=== PATIENT | male | born 1965 | race Caucasian/White ===

== ENCOUNTER 2016-12-14 00:44 | Observation (INO) | payer OTHER ==
[2016-12-14 01:02] VITALS: BMI 29.8
--- NOTE | 2016-12-14 01:39 | PDOC ---
History of Present Illness - General Chief Complaint: Blood Pressure Problem Stated Complaint: HIGH BLOOD PRESSURE Time Seen by Provider: 12/14/16 01:04 - History of Present Illness Initial Comments: 12/14/16 01:39 CHIEF COMPLAINT: blood pressure HISTORY OF PRESENT ILLNESS: 51 yo M with hx of uncontrolled HTN and HLD (taking chlorthalidone, simvistatin, verapamil) was BIBEMS for elevated blood pressure. Per patient, he takes his blood pressure 3x daily due to significant history of "random episodes of spiked blood pressure"; tonight his blood pressure was in the 180s/110s, and he called EMS. Per EMS patient had BP of 200s/110s. On arrival to ED patient's BP was 160/106. Patient states he had "a little blurry vision" at the time he took his blood pressure at home, but denies any symptoms now. He denies any chest pain, shortness of breath, palpitations, diaphoresis. He reports that he has had exactly same episodes "since I was 19" and has seen multiple specialists without any resolution of the problem. He states that he has had a negative holter monitor test, stress test, and multiple other tests that have all been inconclusive. 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 PAST MEDICAL HISTORY: as per HPI FAMILY HISTORY: "All of my family has this same problem, some of them from end organ failure due to heart problems." SOCIAL HISTORY: Denies tobacco, alcohol, illicit drug use. SURGICAL HISTORY: Denies ALLERGIES: No known drug allergies REVIEW OF SYSTEMS General/Constitutional: Denies fever or chills. Denies weakness, weight change. HEENT: "Blurry vision earlier." Denies ear pain or discharge. Denies sore throat. Cardiovascular: Denies chest pain or shortness of breath. Respiratory: Denies cough, wheezing, or hemoptysis. Gastrointestinal: Denies nausea, vomiting, diarrhea or constipation. Denies rectal bleeding. Genitourinary: Denies dysuria, frequency, or change in urination. Musculoskeletal: Denies joint or muscle swelling or pain. Denies neck or back pain. Skin and breasts: Denies rash or easy bruising. Neurologic: Denies headache, vertigo, loss of consciousness, or loss of sensation. PHYSICAL EXAM General Appearance: Well-appearing, appropriately dressed. No apparent distress. HEENT: EOMI, PERRLA, normal ENT inspection, normal voice, TMs normal, pharynx normal. No conjunctival pallor. No photophobia, scleral icterus. Neck: Supple. Trachea midline. No tenderness, rigidity, carotid bruit, stridor , lymphadenopathy, or thyromegaly. Respiratory/Chest: Lungs CTAB. No shortness of breath, chest tenderness, respiratory distress, accessory muscle use. No crackles, rales, rhonchi, stridor , wheezing, dullness Cardiovascular: RRR. S1, S2. No JVD, murmur, bradycardia, tachycardia. Vascular Pulses: Dorsalis-Pedis (R): 2+, Dorsalis-Pedis (L): 2+ Gastrointestinal/Abdominal: Normal bowel sounds. Abdomen soft, non-distended. No tenderness or rebound tenderness. No organomegaly, pulsatile mass, guarding , hernia, hepatomegaly, splenomegaly. Lymphatic: No adenopathy, tenderness. Musculoskeletal/Extremities: Normal inspection. FROM of all extremities, normal capillary refill. Pelvis Stable. No CVA tenderness. No tenderness to extremities, pedal edema, swelling, erythema or deformity. Integumentary: Appropriate color, dry, warm. 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 Fully oriented, alert. Appropriate mood/affect. Motor strength 5/5. No appreciable EOM palsy, facial droop or sensory deficit. Past History - Past Medical History Allergies/Adverse Reactions: Allergies Allergy/AdvReac Type Severity Reaction Status Date / Time No Known Allergies Allergy Verified 12/14/16 00:58 Home Medications: Ambulatory Orders Pantoprazole Sodium 40 mg PO DAILY 12/14/16 Verapamil HCl [Verapamil ER] 120 mg PO DAILY 12/14/16 Aspirin [ASA -] 81 mg PO DAILY tab.chew 12/15/16 Atorvastatin Ca [Lipitor] 20 mg PO HS #60 tablet 12/15/16 Fluticasone Prop 0.05% Nasal [Flonase -] 1 spray NS BID spray 12/15/16 Valsartan [Diovan] 80 mg PO DAILY #60 tablet 12/15/16 Verapamil HCl 120 mg PO DAILY tablet 12/15/16 - Suicide/Smoking/Psychosocial Hx Smoking History: Never smoked Have you smoked in the past 12 months: No Information on smoking cessation initiated: No Hx Alcohol Use: No Drug/Substance Use Hx: No *Physical Exam - Vital Signs Last Vital Signs Temp Pulse Resp BP Pulse Ox 98.4 F 62 16 140/83 97 12/15/16 18:00 12/15/16 18:00 12/15/16 18:00 12/15/16 18:00 12/15/16 07:43 Heart Score/ECG Review - History History: Slightly suspicious - Electrocardiogram EKG: Normal - Age Age: 45-65 - Risk Factors Risk Factors Heart Score: Yes Hx Hypercholesterolemia, Yes Hx Hypertension, Yes Positive family hx of cardiac disease Based on the list above the patient has:: >/=3 risk factors or Hx atherosclerotic disease - Troponin Troponin: </= normal limit - Score Heart Score - Total: 3 ED Treatment Course - LABORATORY CBC & Chemistry Diagram: 12/14/16 01:48 12/15/16 15:10 - ADDITIONAL ORDERS Additional order review: 12/14/16 01:48 RBC 5.37 MCV 84.1 MCHC 32.4 RDW 13.9 MPV 10.0 Neutrophils % 58.8 Lymphocytes % 24.0 Monocytes % 9.8 Eosinophils % 6.1 H Basophils % 1.3 - Medications Given in the ED: ED Medications Discontinued Medications Generic Name Dose Route Start Last Admin Trade Name Freq PRN Reason Stop Dose Admin Amlodipine Besylate 5 mg 12/14/16 01:48 12/14/16 02:11 Norvasc - PO 12/14/16 01:49 5 mg ONCE ONE Administration Amlodipine Besylate 5 mg 12/15/16 10:00 12/15/16 09:41 Norvasc - PO 5 mg DAILY SRINI Administration Aspirin 162 mg 12/14/16 07:15 12/14/16 09:50 Asa - PO 12/14/16 07:16 162 mg ONCE ONE Administration Aspirin 81 mg 12/15/16 10:00 12/15/16 09:41 Asa - PO 81 mg DAILY SRINI Administration Atorvastatin Calcium 10 mg 12/14/16 22:00 12/14/16 22:57 Lipitor - PO 10 mg HS SRINI Administration Chlorthalidone 25 mg 12/14/16 14:30 12/14/16 15:45 Hygroton - PO 25 mg DAILY SRINI Administration Fluticasone Propionate 1 spray 12/14/16 22:00 12/15/16 09:43 Flonase - NS 1 spray BID SRINI Administration Pantoprazole Sodium 40 mg 12/14/16 14:30 12/15/16 09:41 Protonix - PO 40 mg DAILY SRINI Administration Potassium Chloride 20 meq 12/14/16 03:22 12/14/16 04:19 K-Dur - PO 12/14/16 03:23 20 meq ONCE ONE Administration Potassium Chloride 20 meq 12/14/16 15:27 12/14/16 15:45 K-Dur - PO 12/14/16 15:28 20 meq ONCE ONE Administration Potassium Chloride 20 meq 12/15/16 16:31 12/15/16 17:38 K-Dur - PO 12/15/16 16:32 20 meq ONCE ONE Administration Valsartan 80 mg 12/15/16 14:00 12/15/16 14:55 Diovan - PO 12/15/16 14:01 80 mg ONCE ONE Administration Verapamil HCl 120 mg 12/14/16 14:30 12/15/16 11:02 Verapamil Hcl PO 120 mg DAILY SRINI Administration Medical Decision Making - Medical Decision Making 12/14/16 03:53 51 yo M with hx of uncontrolled HTN and HLD (taking chlorthalidone, simvistatin , verapamil) was BIBEMS for elevated blood pressure. -EKG -CBC, CMP, card profile, Mg EKG normal. CKMB elevated to 6+ with CK in 700s. Trop negative. Patient reports that "it' s usually like this, the CK is elevated." He reports that he has tried multiple different exercise regimens as well as different diets to try to find out what is causing this. Discussed case with ER attending Jonas. Heart score 3, will admit to obs for GABO given elevated CKMB. *DC/Admit/Observation/Transfer Diagnosis at time of Disposition: Ruled out for myocardial infarction, Hypertensive urgency - Discharge Dispostion Disposition: HOME Condition at time of disposition: Improved Admit: Yes - Prescriptions
[2016-12-14] MEDS ORDERED: amLODIPine BESYLATE 5 MG TABLET (FP) PO ONE (01:48)
[2016-12-14 01:55] LABS: BASOPHIL 1.3 % (0-2.0); EOSINOPHIL 6.1 % (0-4.5); MCH 27.2 pg (25.7-33.7); MCHC 32.4 g/dl (32.0-35.9); MEAN CELL VOLUME 84.1 fl (80-96); NEUTROPHILS 58.8 % (42.8-82.8); PLATELET COUNT 218 K/MM3 (134-434); RDW 13.9 % (11.9-15.9); WHITE BLOOD COUNT 9.1 K/mm3 (4.0-10.0)
[2016-12-14] MEDS ORDERED: amLODIPine BESYLATE 5 MG TABLET (FP) ONE (02:09)
[2016-12-14 02:13] LABS: INR 1.02 (0.82-1.09); PROTHROMBIN TIME (PATIENT) 11.5 SEC (9.98-11.88)
[2016-12-14 02:23] LABS: MAGNESIUM 2.1 mg/dL (1.8-2.4)
[2016-12-14 02:24] LABS: ALBUMIN 3.7 g/dl (3.4-5.0); ANION GAP 10 (8-16); BILIRUBIN,TOTAL 0.8 mg/dL (0.2-1.0); CALCIUM 9.4 mg/dL (8.5-10.1); CO2 28 mmol/L (21-32); CREATININE 0.8 mg/dL (0.7-1.3); GLUCOSE,RANDOM 111 mg/dL (74-106); SGOT/AST 34 U/L (15-37); SGPT/ALT 48 U/L (12-78); TOT PROT 7.2 g/dl (6.4-8.2)
[2016-12-14 02:26] LABS: ALK PHOS 54 U/L (45-117); CPK 791 IU/L (39-308); TROPONIN I < 0.02 ng/ml (0.00-0.05)
[2016-12-14] MEDS ORDERED: POTASSIUM CHLORIDE TABS 20 MEQ TABLET.ER (FP) PO ONE ×3 (03:22→15:27)
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
[2016-12-14] MEDS ORDERED: ASPIRIN 81 MG CHEWABLE TABLETS PO ONE (07:15)
[2016-12-14] MEDS ORDERED: ASPIRIN 81 MG CHEWABLE TABLETS ONE (09:47)
[2016-12-14 10:25] LABS: ANION GAP 6 (8-16); BILIRUBIN,TOTAL 1.1 mg/dL (0.2-1.0); CALCIUM 9.4 mg/dL (8.5-10.1); CHOLESTEROL 179 mg/dL (50-200); CO2 34 mmol/L (21-32); CREATININE 0.9 mg/dL (0.7-1.3); GLUCOSE,RANDOM 97 mg/dL (74-106); PHOSPHOROUS 2.9 mg/dL (2.5-4.9); SGOT/AST 33 U/L (15-37); SGPT/ALT 50 U/L (12-78); TOT PROT 7.6 g/dl (6.4-8.2)
[2016-12-14 10:26] LABS: CPK 700 IU/L (39-308); TROPONIN I < 0.02 ng/ml (0.00-0.05); URINE MARIJUANA THC NEGATIVE ng/ml (CUTOFF=50)
[2016-12-14 10:34] LABS: ALK PHOS 56 U/L (45-117); THYROID STIMULATING HORMONE 2.61 uIU/ml (0.358-3.74)
--- NOTE | 2016-12-14 11:01 | EKG ---
Test Reason : Blood Pressure : / mmHG Vent. Rate : 069 BPM Atrial Rate : 069 BPM P-R Int : 178 ms QRS Dur : 096 ms QT Int : 406 ms P-R-T Axes : 072 049 044 degrees QTc Int : 435 ms NORMAL SINUS RHYTHM LEFT ATRIAL ENLARGEMENT ABNORMAL ECG NO PREVIOUS ECGS AVAILABLE Confirmed by XOCHILT PRESCOTT MD ([id number]) on 12/14/2016 11:01:40 AM Referred By: Confirmed By:XOCHILT PRESCOTT MD
[2016-12-14] MEDS ORDERED: CHLORTHALIDONE 25 MG TABLET PO SCH (14:30)
[2016-12-14] MEDS: PANTOPRAZOLE 40 MG TABLET (FP) PO SCH (15:45)
[2016-12-14] MEDS: VERAPAMIL HCL 120 MG TABLET PO SCH (15:45)
--- NOTE | 2016-12-14 20:09 | CON.CARD ---
Consult Consult Specialty:: Cardiology Referred by:: Hospitalist Reason for Consultation:: Cardiac evaluation - History of Present Illness Chief Complaint: Hypertension History of Present Illness: Patient is a 51 year old male with underlying history of hypertension which has been labile and hypercholesterolemia who presents with left sided chest discomfort and elevated blood pressure up to 180/110 mmHg. When EMS arrived at this house, he was found to have blood pressure of 200/110 mmHg. He was brought in for further management. He denies shortness of breath or palpitations. He denies paroxysmal nocturnal dyspnea or orthopnea. He denies fever or chills. He denies headache or lightheadedness. He denies cough or expectorations. He denies nausea, vomiting, diarrhea or abdominal pain. Cardiology consultation was called for further evaluation. - History Source History Provided By: Patient Limitations to Obtaining History: No Limitations - Past Medical History Cardio/Vascular: Yes: HTN, Hyperlipdemia - Alcohol/Substance Use Hx Alcohol Use: No - Smoking History Smoking history: Never smoked Have you smoked in the past 12 months: No Home Medications - Allergies Allergies/Adverse Reactions: Allergies Allergy/AdvReac Type Severity Reaction Status Date / Time No Known Allergies Allergy Verified 12/14/16 00:58 - Home Medications Home Medications: Ambulatory Orders Pantoprazole Sodium 40 mg PO DAILY 12/14/16 Verapamil HCl [Verapamil ER] 120 mg PO DAILY 12/14/16 Aspirin [ASA -] 81 mg PO DAILY tab.chew 12/15/16 Atorvastatin Ca [Lipitor] 20 mg PO HS #60 tablet 12/15/16 Fluticasone Prop 0.05% Nasal [Flonase -] 1 spray NS BID spray 12/15/16 Valsartan [Diovan] 80 mg PO DAILY #60 tablet 12/15/16 Verapamil HCl 120 mg PO DAILY tablet 12/15/16 Family Disease History - Family Disease History Other Family History: History of HTN Review of Systems - Review of Systems Cardiovascular: reports: Chest Pain. denies: Palpitations, Shortness of Breath Respiratory: denies: Cough, Hemoptysis, Orthopnea, PND, SOB, SOB on Exertion Gastrointestinal: denies: Abdominal Pain, Constipation, Diarrhea, Melena, Nausea , Rectal Bleeding, Vomiting Musculoskeletal: denies: Joint Pain Neurological: denies: Dizziness, Headache, Seizure, Syncope Vital Signs: Vital Signs Temperature 98.3 F 12/14/16 19:18 Pulse Rate 70 10/15/17 19:18 Respiratory Rate 20 12/14/16 19:18 Blood Pressure 145/85 12/14/16 19:18 O2 Sat by Pulse Oximetry (%) 98 12/14/16 19:18 Neck: Yes: Supple Respiratory: Yes: CTA Bilaterally Gastrointestinal: Yes: Normal Bowel Sounds, Soft. No: Tenderness Cardiovascular: Yes: Regular Rate and Rhythm JVD: No Carotid Bruit: No PMI: Non-Displaced Heart Sounds: Yes: S1, S2 Murmur: No: Systolic Murmur, Diastolic Murmur Edema: No - Other Data Labs, Other Data: CBC, BMP 12/14/16 09:30 INR, PTT INR 1.02 (0.82-1.09) 12/14/16 01:48 Troponin, BNP 12/14/16 12/14/16 09:30 18:20 Troponin I < 0.02 < 0.02 Sinus rhythm with left atrial enlargement Echo: Pending Imaging - Results Ultrasound: Report Reviewed (Renal US - normal kidneys) EKG: Report Reviewed Problem List - Problems (1) HLD (hyperlipidemia) Code(s): E78.5 - HYPERLIPIDEMIA, UNSPECIFIED Qualifiers: Hyperlipidemia type: pure hypercholesterolemia Qualified Code(s): E78.00 - Pure hypercholesterolemia, unspecified; E78.00 - Pure hypercholesterolemia, unspecified; E78.00 - Pure hypercholesterolemia, unspecified; E78.0 - Pure hypercholesterolemia (2) Hypertensive urgency Code(s): I16.0 - HYPERTENSIVE URGENCY (3) Ruled out for myocardial infarction Code(s): Z03.89 - ENCNTR FOR OBS FOR OTH SUSPECTED DISEASES AND COND RULED OUT Assessment/Plan 1. Hypertension - labile 2. Hypercholesterolemia 3. Chest pain atypical PLAN: 1. Serial cardiac enzymes 2. Transthoracic echocardiography to assess LV/RV and valvular function 3. Continue Verapamil and Chlorthalidone for now, but additional medication will be needed. Could use ACEI or ARB. Other option is to use beta jorge alberto instead of Verapamil. 4. If hypertension is not target and persistent, secondary cause should be explored including renal artery stenosis. 5. Consider exercise treadmill stress test if chest pain continues otherwise his symptom may be due to uncontrolled hypertension Further plans are to be followed Sang Richie Tony MD
[2016-12-14] MEDS ORDERED: ATORVASTATIN CA 10 MG TABLET (FP) PO SCH (22:00)
[2016-12-14] MEDS: FLUTICASONE PROP 0.05% 16 GM NASAL SPRAY NS SCH (22:57)
[2016-12-14] MEDS ORDERED: ATORVASTATIN CA 40 MG TABLET (FP) ONE (23:11)
[2016-12-15] MEDS ORDERED: amLODIPine BESYLATE 5 MG TABLET (FP) ONE (09:39)
[2016-12-15] MEDS ORDERED: PANTOPRAZOLE 40 MG TABLET (FP) ONE (09:40)
[2016-12-15] MEDS ORDERED: ASPIRIN 81 MG CHEWABLE TABLETS ONE (09:40)
[2016-12-15] MEDS: PANTOPRAZOLE 40 MG TABLET (FP) PO SCH (09:41)
[2016-12-15] MEDS: FLUTICASONE PROP 0.05% 16 GM NASAL SPRAY NS SCH (09:43)
--- NOTE | 2016-12-15 09:53 | PN ---
Progress Note, Physician History of Present Illness: BP improved, on 2 calcium channel blockers. Reports leg cramping due to chlorthalidone-induced hypokalemia, has occurred in past. Denies chest pain or dyspnea. - Current Medication List Current Medications: Active Medications Amlodipine Besylate (Norvasc -) 5 mg PO DAILY [facility] Last Admin: 12/15/16 09:41 Dose: 5 mg Aspirin (Asa -) 81 mg PO DAILY [facility] Last Admin: 12/15/16 09:41 Dose: 81 mg Atorvastatin Calcium (Lipitor -) 20 mg PO [facility] Chlorthalidone (Hygroton -) 25 mg PO DAILY [facility] Last Admin: 12/14/16 15:45 Dose: 25 mg Fluticasone Propionate (Flonase -) 1 spray NS BID [facility] Last Admin: 12/15/16 09:43 Dose: 1 spray Pantoprazole Sodium (Protonix -) 40 mg PO DAILY [facility] Last Admin: 12/15/16 09:41 Dose: 40 mg Verapamil HCl (Verapamil Hcl) 120 mg PO DAILY [facility] Last Admin: 12/14/16 15:45 Dose: 120 mg - Objective Vital Signs: Vital Signs Temperature 97.5 F L 12/15/16 06:22 Pulse Rate 68 12/15/16 07:43 Respiratory Rate 19 12/15/16 06:22 Blood Pressure 159/94 12/15/16 07:43 O2 Sat by Pulse Oximetry (%) 97 12/15/16 07:43 Constitutional: Yes: No Distress, Calm Neck: Yes: Supple Cardiovascular: Yes: Regular Rate and Rhythm Respiratory: Yes: Regular, CTA Bilaterally Gastrointestinal: Yes: Normal Bowel Sounds, Soft Edema: No Labs: CBC, BMP 12/14/16 09:30 INR, PTT INR 1.02 (0.82-1.09) 12/14/16 01:48 - ....Imaging Ultrasound: Report Reviewed (Renal ultrasound, no hydronephrosis) Problem List - Problems (1) HLD (hyperlipidemia) Code(s): E78.5 - HYPERLIPIDEMIA, UNSPECIFIED Qualifiers: Hyperlipidemia type: pure hypercholesterolemia Qualified Code(s): E78.00 - Pure hypercholesterolemia, unspecified; E78.00 - Pure hypercholesterolemia, unspecified; E78.00 - Pure hypercholesterolemia, unspecified; E78.0 - Pure hypercholesterolemia (2) Hypertensive urgency Code(s): I16.0 - HYPERTENSIVE URGENCY (3) Hypokalemia Code(s): E87.6 - HYPOKALEMIA (4) Ruled out for myocardial infarction Code(s): Z03.89 - ENCNTR FOR OBS FOR OTH SUSPECTED DISEASES AND COND RULED OUT Assessment/Plan 1, Hypertensive urgency improving 2. Chest pain syndrome resolved 3. Hyperlipidemia 4. Hypokalemia referable to chlorthalidone P:1. Ruled out for [place] 2. Stop Norvasc and chlorthalidone, add Diovan 80 qd with uptitration as tolerated, replete K as you are 3. Continue ASA 81 qd, Lipitor 20 qhs and Calan Sr 120 qd 4. Had recent echo and electrophysiology studies at [facility], please obtain reports 5. Thank you for consultative opportunity. d/c planning with f/u in office
[2016-12-15] MEDS ORDERED: ASPIRIN 81 MG CHEWABLE TABLETS PO SCH (10:00)
[2016-12-15] MEDS ORDERED: amLODIPine BESYLATE 5 MG TABLET (FP) PO SCH (10:00)
[2016-12-15] MEDS: VERAPAMIL HCL 120 MG TABLET PO SCH (11:02)
--- NOTE | 2016-12-15 12:26 | PN ---
Physical Exam: SUBJECTIVE: Patient seen and examined OBJECTIVE: Vital Signs Period Temp Pulse Resp BP Sys/Quinonez Pulse Ox Last 24 Hr 97.5 F-98.3 F 63-76 19-20 133-159/85-99 97-98 GENERAL: The patient is awake, alert, and fully oriented, in no acute distress. HEAD: Normal with no signs of trauma. EYES: PERRL, extraocular movements intact, sclera anicteric, conjunctiva clear. No ptosis. ENT: Ears normal, nares patent, oropharynx clear without exudates, moist mucous membranes. NECK: Trachea midline, full range of motion, supple. LUNGS: Breath sounds equal, clear to auscultation bilaterally, no wheezes, no crackles, no accessory muscle use. HEART: Regular rate and rhythm, S1, S2 without murmur, rub or gallop. ABDOMEN: Soft, nontender, nondistended, normoactive bowel sounds, no guarding, no rebound, no hepatosplenomegaly, no masses. EXTREMITIES: 2+ pulses, warm, well-perfused, no edema. NEUROLOGICAL: Cranial nerves II through XII grossly intact. Normal speech, gait not observed. PSYCH: Normal mood, normal affect. SKIN: Warm, dry, normal turgor, no rashes or lesions noted Laboratory Results - last 24 hr 12/14/16 18:20 Troponin I < 0.02 Active Medications Generic Name Dose Route Start Last Admin Trade Name Freq PRN Reason Stop Dose Admin Aspirin 81 mg 12/15/16 10:00 12/15/16 09:41 Asa - PO 81 mg DAILY SRINI Administration Atorvastatin Calcium 20 mg 12/15/16 22:00 Lipitor - PO HS SRINI Fluticasone Propionate 1 spray 12/14/16 22:00 12/15/16 09:43 Flonase - NS 1 spray BID SRINI Administration Pantoprazole Sodium 40 mg 12/14/16 14:30 12/15/16 09:41 Protonix - PO 40 mg DAILY SRINI Administration Valsartan 80 mg 12/16/16 10:00 Diovan - PO DAILY SRINI Verapamil HCl 120 mg 12/14/16 14:30 12/15/16 11:02 Verapamil Hcl PO 120 mg DAILY SRINI Administration ASSESSMENT/PLAN:
[2016-12-15] MEDS ORDERED: VALSARTAN 80 MG TABLET (UD) PO ONE (14:00)
[2016-12-15 15:04] VITALS: PULSE 62
--- NOTE | 2016-12-15 15:46 | DS ---
Physical Exam: SUBJECTIVE: Patient seen and examined at the bedside. OBJECTIVE: He denies chest pain or shortness of breath. Vital Signs Period Temp Pulse Resp BP Sys/Quinonez Pulse Ox Last 24 Hr 97.5 F-98.5 F 62-76 14-20 133-159/84-99 97-98 PHYSICAL EXAM GENERAL: The patient is awake, alert, and fully oriented, in no acute distress. HEAD: Normal with no signs of trauma. EYES: PERRL, extraocular movements intact, sclera anicteric, conjunctiva clear. ENT: Ears normal, nares patent, oropharynx clear without exudates, moist mucous membranes. NECK: Trachea midline, full range of motion, supple. LUNGS: Breath sounds equal, clear to auscultation bilaterally, no wheezes, no crackles, no accessory muscle use. HEART: Regular rate and rhythm, S1, S2 without murmur, rub or gallop. ABDOMEN: Soft, nontender, nondistended, normoactive bowel sounds, no guarding, no rebound, no hepatosplenomegaly, no masses. EXTREMITIES: 2+ pulses, warm, well-perfused, no edema. NEUROLOGICAL: Cranial nerves II through XII grossly intact. Normal speech, gait not observed. PSYCH: Normal mood, normal affect. SKIN: Warm, dry, normal turgor, no rashes or lesions noted. LABS Laboratory Results - last 24 hr 12/14/16 18:20 Troponin I < 0.02 HOSPITAL COURSE: Date of Admission:12/14/16 Date of Discharge: 12/15/16 Patient is a 51 year old male with a significant past medical history of uncontrolled hypertension, HLD. He was placed on tele observation for hypertensive urgency, chest pain and for [place] workup/acs rule out. Cardiology: Hypertensive Urgency, BP improving, now has since resolved A/P: On Diovan 80mg daily, Calan daily, Chest pain syndrome resolved Ruled out for [place] by cardiology Stop Norvasc and chlorthalidone, add Diovan 80 qd with uptitration as tolerated Continue ASA 81mg, Lipitor 20mg and Calan 120md daily Cleared by cardiology for discharge Chest Pain, resolved A/P: [place] ruled out No further chest pain Troponins negative x 3 ASA 81 daily, TSH whnl, On Lipitor 20mg daily Further lab work and cardiac workup with Dr. Whiting as an outpatient within one week of d/c Hyperlipidemia, On Lipitor 20mg @ HS Renal: Renal ultrasound r/o renal artery stenosis as an outpatient, pt aware and in agreement Electrolyte Imbalance: Hypokalemia, now resolved Hypokalemia referable to chlorthalidone, which as been stopped Disposition: Discharge home today. full code. Minutes to complete discharge: 60 Discharge Summary Reason For Visit: HYPERTENSIVE URGENCY,RULE OUT FOR MYOCARDIAL Current Active Problems DVT prophylaxis (Acute) HLD (hyperlipidemia) (Acute) Hypertensive urgency (Acute) Hypokalemia (Acute) Ruled out for myocardial infarction (Acute) Condition: Improved - Instructions Diet, Activity, Other Instructions: Mr. Mckeon: Please note a change to your medications as follows: Stop Chlorthalidone - this may be contributing to your low potassium levels New medications: Diovan 80mg daily in the mornings Continue the Aspirin 81mg daily, Lipitor 20mg at night and Calan SR [address] Whiting within 1 week after discharge to have your lab work tested as well as to monitor your response on the new medications. Please call me with any questions that you may have. I am here tomorrow between 7a and 7p. Thank you. Your potassium levels today was within the normal range of 3.5, however, I am giving you a one time order of potassium 20mg so that we can boost up your levels further. Please consider the following potassium rich foods: Bananas Avocados [place] squash Spinach Sweet potatoes [place] Dried apricots Pomegranate Coconut water Please have your lab work repeated with Dr. Whiting within 1 week. A new PCP has been assigned to you as per your request. Thank you for your patience while you were in the ED overnight awaiting a bed* * Paty Lynn, SHARONA [facility] [phone] Referrals: Sky Rodríguez MD [Staff Physician] - Eloisa Snowden MD [Staff Physician] - Phillip Whiting MD [Staff Physician] - Disposition: HOME - Home Medications Comprehensive Discharge Medication List: Ambulatory Orders Pantoprazole Sodium 40 mg PO DAILY 12/14/16 Verapamil HCl [Verapamil ER] 120 mg PO DAILY 12/14/16 Aspirin [ASA -] 81 mg PO DAILY tab.chew 12/15/16 Atorvastatin Ca [Lipitor] 20 mg PO HS #60 tablet 12/15/16 Fluticasone Prop 0.05% Nasal [Flonase -] 1 spray NS BID spray 12/15/16 Valsartan [Diovan] 80 mg PO DAILY #60 tablet 12/15/16 Verapamil HCl 120 mg PO DAILY tablet 12/15/16 This patient is new to me today: No Emergency Visit: Yes ED Registration Date: 12/14/16 Care time: The patient presented to the Emergency Department on the above date and was hospitalized for further evaluation of their emergent condition. Critical Care patient: No - Discharge Referral Referred to [facility] Med [facility] No
[2016-12-15] MEDS ORDERED: POTASSIUM CHLORIDE TABS 20 MEQ TABLET.ER (FP) PO ONE (16:31)
[2016-12-15 18:29] VITALS: BP 140/83; TEMP 98.4
[2016-12-15] MEDS ORDERED: ATORVASTATIN CA 20 MG TABLET (FP) PO SCH (22:00)
[2016-12-16] MEDS ORDERED: VALSARTAN 80 MG TABLET (UD) PO SCH (10:00)
== END 2016-12-15 07:00 | disposition home or self-care (01) ==
LOC: JER 00:44 → JERBED 04:17 → J4W 12-15 14:20
PROVIDERS: ADMIT Internal Medicine; ATTEND Nurse Practitioner Family
DX: I16.0 Hypertensive urgency (principal); E78.5 Hyperlipidemia, unspecified; E87.6 Hypokalemia; Z87.891 Personal history of nicotine dependence; Z03.89 Encounter for observation for other suspected diseases and conditions ruled out
CPT/HCPCS: 36415; 76775-TC; 80053; 80061; 80307; 82550; 82553; 83036; 83721; 83735; 83880; 84100; 84132; 84443; 84484; 85025; 85610; 93005; 93010; 99285-25; G0378

== ENCOUNTER 2017-07-03 04:26 | Emergency (ER) | payer OTHER ==
[2017-07-03 04:43] VITALS: TEMP 98.3; BMI 41.0
[2017-07-03] MEDS ORDERED: ASPIRIN 81 MG CHEWABLE TABLETS PO ONE ×2 (04:46→05:05)
[2017-07-03] MEDS ORDERED: SODIUM CHLORIDE 1,000 ML IV STA (04:46)
[2017-07-03] MEDS ORDERED: ACETAMINOPHEN 1000 MG/100 ML VIAL (NON FORMULARY) IVPB ONE (04:49)
--- NOTE | 2017-07-03 04:49 | PDOC ---
History of Present Illness - General Stated Complaint: NECK PAIN Time Seen by Provider: 07/03/17 04:36 - History of Present Illness Initial Comments: This is a 51 YOM with h/o HTN and prior cigarette smoking who p/w worsening sharp 10/10 right mid-back pain radiating to his right neck for about the past 24 hours. 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 He additionally notes associated right arm and hand numbness, tingling, and a heavy sensation. He denies any chest pain , SOB, headache, vision changes, cough, abdominal pain, burning urination, hematuria, testicular symptoms, difficulty balancing or walking, or other symptoms. He has not taken any medications for these symptoms. Past History - Past Medical History Allergies/Adverse Reactions: Allergies Allergy/AdvReac Type Severity Reaction Status Date / Time No Known Allergies Allergy Verified 07/03/17 04:40 Home Medications: Ambulatory Orders Verapamil HCl [Verapamil ER] 120 mg PO DAILY 12/14/16 Valsartan [Diovan] 80 mg PO DAILY #60 tablet 12/15/16 HTN: Yes Hypercholesterolemia: Yes - Immunization History Immunization Up to Date: No - Suicide/Smoking/Psychosocial Hx Smoking History: Never smoked Have you smoked in the past 12 months: No Hx Alcohol Use: No Drug/Substance Use Hx: No Substance Use Type: None Review of Systems - Review of Systems Able to Perform ROS?: Yes Constitutional: No: Chills, Fever, Unexplained wgt Loss HEENTM: No: Nose Congestion, Throat Pain Respiratory: No: Cough, Shortness of Breath Cardiac (ROS): No: Chest Pain, Palpitations, Syncope ABD/GI: No: Constipated, Diarrhea, Nausea, Vomiting : No: Burning, Dysuria, Hematuria Musculoskeletal: Yes: Back Pain (right sided), Neck Pain (right sided) Integumentary: No: Bruising, Rash Neurological: No: Headache, Numbness, Tingling, Weakness, Dizziness Endocrine: No: Unexplained Weight Gain, Unexplained Weight Loss *Physical Exam - Physical Exam General Appearance: Yes: Nourished, Appropriately Dressed, Moderate Distress HEENT: positive: EOMI, Normal Voice, Hearing Grossly Normal. negative: Scleral Icterus (R), Scleral Icterus (L), Nasal Congestion Neck: positive: Trachea midline, Supple. negative: Tender, Rigid Respiratory/Chest: positive: Lungs Clear, Normal Breath Sounds. negative: Respiratory Distress, Crackles, Rhonchi, Stridor, Wheezing Cardiovascular: positive: Regular Rhythm, Regular Rate. negative: Murmur Gastrointestinal/Abdominal: positive: Normal Bowel Sounds, Soft. negative: Tender, Organomegaly, Pulsatile Mass, Guarding Musculoskeletal: positive: Normal Inspection. negative: Decreased Range of Motion, Vertebral Tenderness Extremity: positive: Normal Capillary Refill, Normal Inspection, Normal Range of Motion. negative: Tender, Cyanosis Integumentary: positive: Normal Color, Dry, Warm. negative: Erythema, Rash, Bruising Neurologic: positive: equipment lead II-XII NML intact, Fully Oriented, Alert, Normal Mood/ Affect, Normal Response, Motor Strength 5/5 Heart Score/ECG Review - History History: Slightly suspicious - Electrocardiogram EKG: Normal - Age Age: 45-65 - Risk Factors Risk Factors Heart Score: Yes Hx Hypertension, Yes Smoking History Based on the list above the patient has:: 1-2 risk factors #1 ECG reviewed & interpreted by me at: 05:34 NSR, rate 76, normal axis and intervals, no ischemic changes ED Treatment Course - LABORATORY CBC & Chemistry Diagram: 07/03/17 05:07 07/03/17 05:07 Medical Decision Making - Medical Decision Making Patient presents with shoulder pain. VS notable for: Exam: DDX IBNLT: muscle strain/sprain, AC separation, clavicle fracture, rotator cuff tear, shoulder dislocation, radiculopathy, rib fracture, other vertebral or spinous process fxr, PTX, PE, ACS, AD, PNA, subclavian steal syndrome, etc W/U ordered: Cardiac panel CBCD CMP Mg Coags T&S D-Dimer CXR EKG TX ordered: NS bolus Ofirmev Reassessment: Repeat VS: ADMIT The patients pain has been intractable despite multiple analgesic doses in the ED. They are not safe for discharge at this time. They require further hospital observation, workup, and treatment. Microblog sent to [facility] for admission. Spoke with [facility], in agreement patient to be admitted to: [id number] Decision to Admit order placed to [facility] covering attending. DISCHARGE The patient has gotten significant relief of symptoms with ED medications. They are appropriate for discharge with close outpatient follow up. The patient is comfortable with this plan and will follow up with their PCP in 1 -3 days. They are counseled on importance of proactive pain management and neurosurgery follow up. They state they will be able to follow up in the next 1-3 days. Return precautions are discussed and they will come back to the ER if necessary. *DC/Admit/Observation/Transfer - Referrals Referrals: ON STAFF,NOT [Primary Care Provider] - - Patient Instructions - Post Discharge Activity
--- NOTE | 2017-07-03 05:00 | PDOC ---
Attending Attestation - HPI HPI: 07/03/17 05:17 The patient is a 51 year old male with a significant PMH of HTN who presents to the emergency department with worsening right upper back pain over approximately the last 24 hours. He describes his back pain as a sharp 10/10 sensation localized in the right upper back by the right axilla with radiation to the right side of neck. He notes associated right arm heaviness, numbness, and tingling. 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 object fall on his back. The patient denies chest pain or shortness of breath. He denies fevers or chills. Allergies: NKA PCP: Not on Staff. <Dante Ashton - Last Filed: 07/03/17 05:17> - Resident Resident Name: Riri Adams - ED Attending Attestation I have performed the following: I have examined & evaluated the patient, The case was reviewed & discussed with the resident, I agree w/resident's findings & plan, Exceptions are as noted - Physicial Exam PE: 07/03/17 06:22 *Physical Exam General Appearance: Yes: Appropriately Dressed. No: Apparent Distress, Intoxicated HEENT: positive: EOMI, LEXIE, Normal ENT Inspection, Normal Voice, TMs Normal, Pharynx Normal. negative: Pale Conjunctivae, Photophobia, Scleral Icterus (R), Scleral Icterus (L) Neck: positive: Trachea midline, Normal Thyroid, Supple. negative: Tender, Rigid, Carotid bruit, Stridor, Lymphadenopathy (R), Lymphadenopathy (L), Thyromegaly Respiratory/Chest: positive: Lungs Clear, Normal Breath Sounds. negative: Chest Tender, Respiratory Distress, Accessory Muscle Use, Labored Respiration, RES, Crackles, Rales, Rhonchi, Stridor, Wheezing, Dullness Cardiovascular: positive: Regular Rhythm, Regular Rate, S1, S2. negative: Edema , JVD, Murmur, Bradycardia, Tachycardia Vascular Pulses: Dorsalis-Pedis (R): 2+, Doralis-Pedis (L): 2+ Gastrointestinal/Abdominal: positive: Normal Bowel Sounds, Flat, Soft. negative : Tender, Organomegaly, Pulsatile Mass, Increased Bowel Sounds, Decreased BS, Distended, Guarding, Rebound, Hernia, Hepatomegaly, Spleenomegaly Lymphatic: negative: Adenopathy, Tenderness Musculoskeletal: positive: Normal Inspection. mild right shoulder girdle tenderness negative: CVA Tenderness, Decreased Range of Motion Extremity: positive: Normal Capillary Refill, Normal Inspection, Normal Range of Motion, Pelvis Stable. negative: Tender, Pedal Edema, Swelling, Erythema Integumentary: positive: Normal Color, Dry, Warm. 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 negative: EOM Palsy, Facial Droop, Sensory Deficit - Medical Decision Making 07/07/17 19:44 pt treated and released <Dex Adams - Last Filed: 07/07/17 19:44>
[2017-07-03 05:16] LABS: BASO % 0.8 % (0-2.0); EOS % 4.7 % (0-4.5); HEMATOCRIT 44.4 % (35.4-49); HEMOGLOBIN 14.9 GM/dL (11.7-16.9); LYMPH % 32.4 % (8-40); MCHC 33.6 g/dl (32.0-35.9); MEAN CELL VOLUME 83.4 fl (80-96); MONO % 9.5 % (3.8-10.2); NEUT % 52.6 % (42.8-82.8); PLATELET COUNT 231 K/MM3 (134-434); RBC 5.32 M/mm3 (4.00-5.60); RDW 13.1 % (11.9-15.9); WHITE BLOOD COUNT 10.4 K/mm3 (4.0-10.0)
[2017-07-03] MEDS ORDERED: ACETAMINOPHEN INJECTION 100 ML IVPB ONE (05:22)
[2017-07-03] MEDS ORDERED: ASPIRIN 81 MG CHEWABLE TABLETS ONE (05:22)
[2017-07-03 05:36] LABS: PROTHROMBIN TIME (PATIENT) 11.3 SEC (9.7-13.0)
[2017-07-03 05:53] LABS: ALBUMIN 3.9 g/dl (3.4-5.0); ANION GAP 5 (8-16); BILIRUBIN,TOTAL 0.5 mg/dL (0.2-1.0); BLOOD UREA NITROGEN 14 mg/dL (7-18); CHLORIDE 104 mmol/L (98-107); CO2 31 mmol/L (21-32); CREATININE 1.2 mg/dL (0.7-1.3); GLUCOSE,RANDOM 105 mg/dL (74-106); MAGNESIUM 2.5 mg/dL (1.8-2.4); POTASSIUM 3.9 mmol/L (3.5-5.1); SGOT/AST 25 U/L (15-37); SGPT/ALT 40 U/L (12-78); SODIUM 140 mmol/L (136-145); TOT PROT 7.6 g/dl (6.4-8.2)
[2017-07-03 05:56] LABS: ALK PHOS 62 U/L (45-117)
[2017-07-03 05:59] LABS: LIPASE 535 U/L (73-393)
[2017-07-03 06:49] LABS: URINE APPEARANCE CLOUDY; URINE BILIRUBIN NEGATIVE (<2.0 mg/dL); URINE COLOR LTYELLOW; URINE GLUCOSE (UA) NEGATIVE (NEGATIVE); URINE KETONE NEGATIVE (NEGATIVE); URINE LEUK ESTERASE NEGATIVE (NEGATIVE); URINE NITRITE NEGATIVE (NEGATIVE); URINE PROTEIN NEGATIVE (NEGATIVE); URINE UROBILINOGEN NEGATIVE mg/dL (0.2-1.0)
[2017-07-03] MEDS ORDERED: IBUPROFEN 600 MG TABLET (FP) PO ONE ×2 (09:09→09:11)
--- NOTE | 2017-07-03 09:15 | PDOC ---
*Physical Exam - Vital Signs Last Vital Signs Temp Pulse Resp BP Pulse Ox 98.3 F 87 18 138/79 98 07/03/17 04:40 07/03/17 04:40 07/03/17 04:40 07/03/17 04:40 07/03/17 04:40 ED Treatment Course - LABORATORY CBC & Chemistry Diagram: 07/03/17 05:07 07/03/17 05:07 - ADDITIONAL ORDERS Additional order review: Laboratory Results 07/03/17 07/03/17 07/03/17 06:30 06:17 05:07 PT with INR INR D-Dimer 456 Sodium Potassium Chloride Carbon Dioxide Anion Gap BUN Creatinine Creat Clearance w eGFR Random Glucose Calcium Magnesium Total Bilirubin AST ALT Alkaline Phosphatase Creatine Kinase Creatine Kinase Index CK-MB (CK-2) Troponin I Total Protein Albumin Lipase Urine Color Ltyellow Urine Appearance Cloudy Urine pH 7.0 Ur Specific [place] 1.014 Urine Protein Negative Urine Glucose (UA) Negative Urine Ketones Negative Urine Blood Negative Urine Nitrite Negative Urine Bilirubin Negative Urine Urobilinogen Negative Ur Leukocyte Esterase Negative Blood Type O POSITIVE Antibody Screen Negative 07/03/17 07/03/17 05:07 05:07 PT with INR 11.30 INR 1.00 D-Dimer Sodium 140 Potassium 3.9 Chloride 104 Carbon Dioxide 31 Anion Gap 5 L BUN 14 D Creatinine 1.2 D Creat Clearance w eGFR > 60 Random Glucose 105 Calcium 9.0 Magnesium 2.5 H Total Bilirubin 0.5 D AST 25 D ALT 40 Alkaline Phosphatase 62 Creatine Kinase 559 H Creatine Kinase Index 0.4 CK-MB (CK-2) 2.664 Troponin I 0.02 Total Protein 7.6 Albumin 3.9 Lipase 535 H Urine Color Urine Appearance Urine pH Ur Specific [place] Urine Protein Urine Glucose (UA) Urine Ketones Urine Blood Urine Nitrite Urine Bilirubin Urine Urobilinogen Ur Leukocyte Esterase Blood Type Antibody Screen 07/03/17 05:07 RBC 5.32 MCV 83.4 MCHC 33.6 RDW 13.1 MPV 10.0 Neutrophils % 52.6 Lymphocytes % 32.4 D Monocytes % 9.5 Eosinophils % 4.7 H Basophils % 0.8 - Medications Given in the ED: ED Medications Discontinued Medications Generic Name Dose Route Start Last Admin Trade Name Freq PRN Reason Stop Dose Admin Acetaminophen 1,000 mg 07/03/17 04:49 05/04/18 05:34 Ofirmev Injection - IVPB 07/03/17 04:50 1,000 mg ONCE ONE Administration Aspirin 162 mg 07/03/17 04:46 07/03/17 05:34 Asa - PO 07/03/17 04:47 Not Given ONCE ONE Aspirin 81 mg 07/03/17 05:05 07/03/17 05:34 Asa - PO 07/03/17 05:06 81 mg ONCE ONE Administration Sodium Chloride 1,000 mls @ 1,000 mls/hr 07/03/17 04:46 07/03/17 05:33 Normal Saline - IV 07/03/17 05:45 1,000 mls/hr ASDIR STA Administration Medical Decision Making - Medical Decision Making 07/03/17 09:29 Updated patient on results. Made aware of findings of undescended testicle, patient aware, condition present from . Will discharge with ortho follow up and short term pain management. *DC/Admit/Observation/Transfer Diagnosis at time of Disposition: Shoulder pain - Discharge Dispostion Disposition: HOME Condition at time of disposition: Improved Admit: No - Referrals Referrals: Ruddy Iniguez MD [Staff Physician] - ON STAFF,NOT [Primary Care Provider] - Miguel Oconnell MD [Staff Physician] - - Patient Instructions Printed Discharge Instructions: DI for Shoulder Pain Additional Instructions: Follow up with Orthopedic Surgeon Dr. Oconnell. Come back to the emergency department for any new, worsening or concerning symptom. - Post Discharge Activity
--- NOTE | 2017-07-03 09:30 | EKG ---
Test Reason : Blood Pressure : / mmHG Vent. Rate : 076 BPM Atrial Rate : 076 BPM P-R Int : 160 ms QRS Dur : 094 ms QT Int : 388 ms P-R-T Axes : 063 043 032 degrees QTc Int : 436 ms NORMAL SINUS RHYTHM NORMAL ECG WHEN COMPARED WITH ECG OF 14-DEC-2016 01:21, NO SIGNIFICANT CHANGE WAS FOUND Confirmed by XOCHILT PRESCOTT MD ([id number]) on 07/03/2017 9:30:11 AM Referred By: Confirmed By:XOCHILT PRESCOTT MD
[2017-07-03 10:06] VITALS: BP 169/108; PULSE 71
== END 2017-07-03 10:05 | disposition home or self-care (01) ==
LOC: JER 04:26
PROC: 3E033NZ Introduction of Analgesics, Hypnotics, Sedatives into Peripheral Vein, Percutaneous Approach (ICD-10-PCS; principal; 2017-07-03)
PROC: 3E0337Z Introduction of Electrolytic and Water Balance Substance into Peripheral Vein, Percutaneous Approach (ICD-10-PCS; 2017-07-03)
DX: I10 Essential (primary) hypertension (principal)
CPT/HCPCS: 36415; 71045-TC-FY; 74176-TC; 80053; 81003; 82550; 82553; 83690; 83735; 84484; 85025; 85379; 85610; 86850; 86900; 86901; 93005; 93010; 99282-25; J0131; J7030

== ENCOUNTER 2017-12-13 12:44 | Emergency (ER) | payer OTHER ==
[2017-12-13 12:50] VITALS: PULSE 89; TEMP 97.9; BMI 29.8
[2017-12-13] MEDS ORDERED: KETOROLAC TROMETHAMINE 60 MG/2 ML VIAL IM ONE (13:34)
[2017-12-13] MEDS ORDERED: diazePAM 5 MG TABLET PO ONE (13:34)
--- NOTE | 2017-12-13 13:34 | PDOC ---
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 Patient reports pain with ambulation and movement. Patient reports he took half a Percocet today without relief. No recent travel or sick contacts. PAST MEDICAL HISTORY: Denies past medical history FAMILY HISTORY: Denies SOCIAL HISTORY: Denies tobacco, alcohol, illicit drug use. SURGICAL HISTORY: Denies ALLERGIES: No known drug allergies REVIEW OF SYSTEMS General/Constitutional: Denies fever or chills. Denies weakness, weight change. HEENT: Denies change in vision. Denies ear pain or discharge. Denies sore throat. Cardiovascular: Denies chest pain or shortness of breath. Respiratory: Denies cough, wheezing, or hemoptysis. Gastrointestinal: Denies nausea, vomiting, diarrhea or constipation. Denies rectal bleeding. Genitourinary: Denies dysuria, frequency, or change in urination. Musculoskeletal: Low back pain radiating down left leg, worse with movement and ambulation. Skin and breasts: Denies rash or easy bruising. Neurologic: Denies headache, vertigo, loss of consciousness, or loss of sensation. PHYSICAL EXAM General Appearance: Well-appearing, appropriately dressed. No apparent distress , no intoxication. HEENT: EOMI, PERRLA, normal ENT inspection, normal voice, TMs normal, pharynx normal. No conjunctival pallor. No photophobia, scleral icterus. Neck: Supple. Trachea midline. No tenderness, rigidity, carotid bruit, stridor , lymphadenopathy, or thyromegaly. Respiratory/Chest: Lungs CTAB. No shortness of breath, chest tenderness, respiratory distress, accessory muscle use. No crackles, rales, rhonchi, stridor , wheezing, dullness Cardiovascular: RRR. S1, S2. No JVD, murmur, bradycardia, tachycardia. Vascular Pulses: Dorsalis-Pedis (R): 2+, Dorsalis-Pedis (L): 2+ Gastrointestinal/Abdominal: Normal bowel sounds. Abdomen soft, non-distended. No tenderness or rebound tenderness. No organomegaly, pulsatile mass, guarding , hernia, hepatomegaly, splenomegaly. Musculoskeletal/Extremities: Patient is ambulatory. Pain to left lumbar paravertebral muscles on palpation, positive straight leg test to L leg. Normal inspection. FROM of all extremities, normal capillary refill. Pelvis Stable. No CVA tenderness. No tenderness to extremities, pedal edema, swelling , erythema or deformity. Integumentary: Appropriate color, dry, warm. 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 Fully oriented, alert. Appropriate mood/affect. Motor strength 5/5. No appreciable EOM palsy, facial droop or sensory deficit. Past History - Past Medical History Allergies/Adverse Reactions: Allergies Allergy/AdvReac Type Severity Reaction Status Date / Time No Known Allergies Allergy Verified 12/13/17 12:50 Home Medications: Ambulatory Orders Verapamil HCl [Verapamil ER] 120 mg PO DAILY 12/14/16 Valsartan [Diovan] 80 mg PO DAILY #60 tablet 12/15/16 Diazepam [Valium] 1 - 2 tab PO DAILY PRN #12 tablet MDD 2 12/13/17 COPD: No HTN: Yes Hypercholesterolemia: Yes - Immunization History Immunization Up to Date: No - Suicide/Smoking/Psychosocial Hx Smoking History: Never smoked Have you smoked in the past 12 months: No Hx Alcohol Use: No Drug/Substance Use Hx: No Substance Use Type: None *Physical Exam - Vital Signs Last Vital Signs Temp Pulse Resp BP Pulse Ox 97.9 F 89 20 175/105 H 99 12/13/17 12:46 12/13/17 12:46 12/13/17 12:46 12/13/17 12:46 12/13/17 12:46 Medical Decision Making - Medical Decision Making 12/13/17 13:34 52 yo M with hx of HTN and 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 -Toradol, valium *DC/Admit/Observation/Transfer Diagnosis at time of Disposition: Chronic low back pain with left-sided sciatica Qualifiers: Back pain laterality: left Qualified Code(s): M54.42 - Lumbago with sciatica, left side - Discharge Dispostion Disposition: HOME Condition at time of disposition: Stable Decision to Admit order: No - Prescriptions Prescriptions: Diazepam [Valium] 1 - 2 tab PO DAILY PRN #12 tablet MDD 2 PRN Reason: Back Pain - Referrals Referrals: Miguel Oconnell MD [Staff Physician] - - Patient Instructions Printed Discharge Instructions: DI for Back Pain With Sciatica Additional Instructions: Please follow up with orthopedics within the next 3-5 days for further evaluation and monitoring of your back pain. If you develop any loss of sensation to your legs, loss of bowel or bladder function, inability to walk, chest pain, palpitations, shortness of breath, or any new or worsening symptoms , please return to the ER. - Post Discharge Activity
[2017-12-13] MEDS ORDERED: diazePAM 5 MG TABLET ONE (13:43)
[2017-12-13] MEDS ORDERED: KETOROLAC TROMETHAMINE 60 MG/2 ML VIAL ONE (13:43)
[2017-12-13 14:37] VITALS: BP 155/99
== END 2017-12-13 14:38 | disposition home or self-care (01) ==
LOC: JERFT 12:44
PROC: 3E0233Z Introduction of Anti-inflammatory into Muscle, Percutaneous Approach (ICD-10-PCS; principal; 2017-12-13)
DX: M54.42 Lumbago with sciatica, left side (principal); I10 Essential (primary) hypertension; M51.26 Other intervertebral disc displacement, lumbar region
CPT/HCPCS: 99281-25

== ENCOUNTER 2018-10-16 11:10 | Observation (INO) | payer OTHER ==
--- NOTE | 2018-10-16 12:07 | PDOC ---
History of Present Illness - General Chief Complaint: CVA/TIA Stated Complaint: BLOOD PRESSURE PROBLEM Time Seen by Provider: 10/16/18 11:31 - History of Present Illness Initial Comments: 10/16/18 13:37 52M with pmh of hypertension presents to the Ed with episode of clammy hands this morning, left sided chest pain with radiation to the R neck and face. In addition recent B/l shoulder pain worsening over the week. Similar episodes in the past. He called ems who gave him sublingual nitroglycerine which relieved his pain. Recent negative stress test. Denies any focal weakness, numbness or tingling As well as any fever, chills, n, v,d, abdominal pain or dysuria. All doctors in [facility]. 10/16/18 16:00 Smoking history 30 years ago. multiple packs a day for 5 years. Past History - Past Medical History Allergies/Adverse Reactions: Allergies Allergy/AdvReac Type Severity Reaction Status Date / Time No Known Allergies Allergy Verified 10/16/18 11:44 Home Medications: Ambulatory Orders Valsartan [Diovan] 80 mg PO DAILY 10/16/18 Verapamil HCl [Verapamil ER] 120 mg PO HS 10/16/18 COPD: No HTN: Yes Hypercholesterolemia: Yes - Immunization History Immunization Up to Date: No - Suicide/Smoking/Psychosocial Hx Smoking History: Unknown if ever smoked Have you smoked in the past 12 months: No Hx Alcohol Use: No Drug/Substance Use Hx: No Substance Use Type: None Review of Systems - Review of Systems Able to Perform ROS?: Yes Is the patient limited Nauruan proficient: No Constitutional: No: Symptoms Reported HEENTM: No: Symptoms Reported Respiratory: No: Symptoms reported Cardiac (ROS): Yes: See HPI ABD/GI: No: Symptoms Reported : No: Symptoms Reported Musculoskeletal: No: Symptoms Reported Integumentary: No: Symptoms Reported Neurological: No: Symptoms reported All Other Systems: Reviewed and Negative *Physical Exam - Vital Signs Last Vital Signs Temp Pulse Resp BP Pulse Ox 97.8 F 64 16 156/106 H 99 10/16/18 11:15 10/16/18 11:15 10/16/18 11:15 10/16/18 11:15 10/16/18 11:47 - Physical Exam General Appearance: Yes: Nourished, Appropriately Dressed. No: Apparent Distress HEENT: positive: EOMI, LEXIE, Normal ENT Inspection Respiratory/Chest: positive: Lungs Clear. negative: Chest Tender, Respiratory Distress Cardiovascular: positive: Regular Rhythm, Regular Rate, S1, S2 Gastrointestinal/Abdominal: positive: Normal Bowel Sounds, Flat, Soft. negative : Tender Musculoskeletal: positive: Normal Inspection. negative: CVA Tenderness Neurologic: positive: Fully Oriented, Alert, Normal Mood/Affect, Normal Response Heart Score/ECG Review - History History: Moderately suspicious - Electrocardiogram EKG: Normal - Age Age: 45-65 - Risk Factors Risk Factors Heart Score: Yes Hx Hypercholesterolemia, Yes Hx Hypertension, Yes Smoking History, No Positive family hx of cardiac disease, No Hx Obesity Based on the list above the patient has:: 1-2 risk factors - Troponin Troponin: </= normal limit - Score Heart Score - Total: 3 Critical Care Time/MDM Note - Medical Decision Making Note: 10/16/18 12:53 52m with hypertension equal in both armm, chest and neck pain. Dissection vs RI vs msk pain CTA neck and chest ordered to r/o dissection. As thi is an emergency cat scan we will defer obtaining creatinine level first. In addition, the patient has a history of good renal function. 10/16/18 13:47 CTA read pending, labs pending, 10/16/18 13:48 Normal sinus rhythm, nonspecific ST abnormality. 10/16/18 14:35 There is no evidence of aneurysmal dilatation or dissection in the thoracic and abdominal aorta down through its bifurcation as well as included portion of the proximal common carotid and vertebral artery, bilaterally. The right and left common carotid bifurcation was not included on this exam. No gross pulmonary embolus in the main pulmonary artery and its proximal bifurcations. 9 mm left adrenal low-attenuation nodule for which further evaluation with a nonemergent thyroid ultrasound is needed to further assess its consistency. No enlarged mediastinal or hilar lymph nodes are identified. Minimal calcification of the coronary arteries are present. There is no evidence of small bowel obstruction. No acute process in the abdomen and included portion of the upper pelvis. Degenerative disc disease mainly at L2-L3 level with mild disc bulge at L2-3 and L3-L4 level, as described above 10/16/18 16:00 Will admit to tele obs as chest pain didn't resolve. *DC/Admit/Observation/Transfer Diagnosis at time of Disposition: Hypertensive urgency, Hypertension, Ruled out for myocardial infarction - Discharge Dispostion Decision to Admit order: Yes - Referrals Referrals: ON STAFF,NOT [Primary Care Provider] - Brown Grover DO [Staff Physician] - - Patient Instructions Printed Discharge Instructions: Malignant Hypertension - Post Discharge Activity
--- NOTE | 2018-10-16 12:53 | PDOC ---
Documentation entered by Suzanne Callahan SCRIBE, acting as scribe for Shannon Joya MD. Shannon Joya MD: This documentation has been prepared by the scribe, Suzanne Callahan SCRIBE, under my direction and personally reviewed by me in its entirety. I confirm that the documentation accurately reflects all work, treatment, procedures, and medical decision making performed by me. Attending Attestation - Resident Resident Name: Keny Paula - ED Attending Attestation I have performed the following: I have examined & evaluated the patient, The case was reviewed & discussed with the resident, I agree w/resident's findings & plan, Exceptions are as noted - HPI HPI: 10/16/18 12:25 The patient is a 52-year-old male, with a past medical history of HTN and HLD, who presents to the ED with 1 week of B/L shoulder pain and midsternal chest pain since this morning. The patient states that his symptoms began this morning while he was in bed. He describes the chest pain as sharp, radiating up to the RT side of his face. Symptoms lasted up until the arrival of the paramedics when he received nitroglycerin and aspirin. He reports that he has experienced similar symptoms in the past. He reports most of his doctors are at [facility]. The patient denies any fevers, chills, nausea, vomiting, diarrhea, or abdominal pain. Denies any, palpitations or shortness of breath. Denies focal weakness or numbness. Allergies: NKA Surgical History: Cardiac cath. PCP: At [facility] - Physicial Exam PE: 10/16/18 12:27 GENERAL: Awake, alert, and fully oriented, in no acute distress HEAD: No signs of trauma EYES: PERRLA, EOMI, sclera anicteric, conjunctiva clear ENT: Oropharynx clear without exudates. Moist mucosa NECK: Normal ROM, supple, no lymphadenopathy, JVD, or masses LUNGS: Breath sounds equal, clear to auscultation bilaterally. No wheezes, and no crackles HEART: Regular rate and rhythm, normal S1 and S2, no murmurs, rubs or gallops ABDOMEN: Soft, nontender, normoactive bowel sounds. No guarding, no rebound. No masses EXTREMITIES: Normal range of motion, no edema. No cords, erythema, or tenderness. Pulses equal in both extremities BACK: No midline spinal tenderness in cervical/thoracic/lumbar region NEUROLOGICAL: Normal speech, cranial nerves intact, 5/5 strength in all 4 extremities, normal sensation to light touch in all 4 extremities, normal cerebellar exam, normal tone. SKIN: Warm, Dry, normal turgor, no rashes or lesions noted. BP equal both arms 160/108 RUE, 154/106 LUE. - Medical Decision Making 10/16/18 12:16 52yo M hx HTN presents to the ED with 1 day of sharp b/l shoulder pain, radiating to arms a/w central sharp radiating CP radiating to the R side of the neck. CP/neck pain began ths morning while he was in bed at rest Vitals with elevated BP Exam with neuro intact pt with equal BP in both arms and equal pulses in all extremities Sxs improved en route with nitro/asa DDx includes aortic dissection vs acs vs PNA vs MSK pain Plan for CTA, labs. Anticipate admission. 10/16/18 16:30 CTA, labs negative Case discussed with Dr. Salinas (covering for pt's scrub tech Dr. Rubio Noble) He has no further recommendations as he has no access at this time to pts previous cardiact testing Currently continues to have cp, which is better post nitro from EMS but still mildly present As such, will admit pt to tele obs given persistent CP Case accepted for admission to Dr. Yang's service Case discussed in detail with admitting physician including history, physical exam and ancillary studies. Admitting physician has assumed care for the patient, will follow all pending diagnostics and will complete the evaluation and treatment. Heart Score/ECG Review #1 10/16/18 12:50 EKG read and int by me: NSR, rate 64, normal axis and intervals. No FRANCISCA. TWI in lead III
[2018-10-16 13:18] LABS: BASO % 1.1 % (0-2.0); EOS % 4.2 % (0-4.5); HEMATOCRIT 45.9 % (35.4-49); HEMOGLOBIN 15.3 GM/dL (11.7-16.9); LYMPH % 23.4 % (8-40); MCH 27.8 pg (25.7-33.7); MCHC 33.3 g/dl (32.0-35.9); MEAN CELL VOLUME 83.5 fl (80-96); MEAN PLT VOLUME 9.6 fl (7.5-11.1); MONO % 7.9 % (3.8-10.2); NEUT % 63.4 % (42.8-82.8); PLATELET COUNT 249 K/MM3 (134-434); RDW 13.3 % (11.9-15.9); WHITE BLOOD COUNT 7.7 K/mm3 (4.0-10.0)
[2018-10-16 13:31] LABS: INR 1.04 (0.83-1.09); PROTHROMBIN TIME (PATIENT) 12.3 SEC (9.7-13.0)
[2018-10-16 13:39] LABS: ALBUMIN 4.1 g/dl (3.4-5.0); BILIRUBIN,TOTAL 0.7 mg/dL (0.2-1); CALCIUM 9.1 mg/dL (8.5-10.1); CREATININE 1.1 mg/dL (0.55-1.3); POTASSIUM 3.6 mmol/L (3.5-5.1); TOT PROT 7.8 g/dl (6.4-8.2)
[2018-10-16] MEDS ORDERED: NITROGLYCERIN SUBLINGUAL 1/150 0.4 MG TAB SL PRN (18:00)
[2018-10-16] MEDS ORDERED: ACETAMINOPHEN 325 MG TABLET (FP) PO PRN (18:01)
[2018-10-16] MEDS ORDERED: ACETAMINOPHEN 325 MG TABLET (FP) PO STA (18:01)
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
[2018-10-16 21:56] VITALS: BMI 30.9
[2018-10-16] MEDS ORDERED: VERAPAMIL HCL 120 MG E.R. TABLET PO ONE (22:27)
[2018-10-17 07:30] LABS: BASO % 1.1 % (0-2.0); HEMATOCRIT 44.7 % (35.4-49); HEMOGLOBIN 14.8 GM/dL (11.7-16.9); LYMPH % 29.4 % (8-40); MCH 27.6 pg (25.7-33.7); MCHC 33.1 g/dl (32.0-35.9); MEAN CELL VOLUME 83.4 fl (80-96); MEAN PLT VOLUME 9.9 fl (7.5-11.1); MONO % 7.5 % (3.8-10.2); PLATELET COUNT 248 K/MM3 (134-434); RBC 5.36 M/mm3 (4.00-5.60); RDW 13.4 % (11.9-15.9); WHITE BLOOD COUNT 7.5 K/mm3 (4.0-10.0)
[2018-10-17 07:48] LABS: INR 1.01 (0.83-1.09); PROTHROMBIN TIME (PATIENT) 11.9 SEC (9.7-13.0)
[2018-10-17 07:49] LABS: ALBUMIN 3.6 g/dl (3.4-5.0); BILIRUBIN,TOTAL 0.5 mg/dL (0.2-1); BLOOD UREA NITROGEN 12.4 mg/dL (7-18); CALCIUM 8.9 mg/dL (8.5-10.1); CREATININE 1.1 mg/dL (0.55-1.3); MAGNESIUM 2.5 mg/dL (1.8-2.4); PHOSPHOROUS 3.5 mg/dL (2.5-4.9); POTASSIUM 3.8 mmol/L (3.5-5.1); TOT PROT 7.2 g/dl (6.4-8.2)
[2018-10-17 07:51] LABS: ACTIVATED PTT 34.3 SECONDS (25.2-36.5)
--- NOTE | 2018-10-17 08:17 | CON.CARD ---
Consult Consult Specialty:: cardio - History of Present Illness Chief Complaint: cp History of Present Illness: 52 yo M here with CP. sees cardio in [place] (jose angel Noble). per pt report recent negative stress test. here with uncontrolled BP, accompanied by chest pain and dizziness. states he felt very dizzy, but similar sx to prior HTN episodes. CP was very localized along sternum region (one fingerbreadth), "stabbing" quality coming and going repeatedly with each episode lasting 1 or 2 seconds. as bp improved the cp resolved. denies new neuro deficits including vision loss/change, numbness, motor weakness , speech disturbance. the CP was IDENTICAL TO SX HE HAS HAD DURING SEVERAL PRIOR HTN SPIKE EPISODES IN PAST. 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--never cp or sob incl recently stress test (medication) with cardio late 2017 was unremarkable per pt ( reliable historian) currently asymptomatic, in USOH no palp, syncope PMH: HTN HPL - Past Medical History Cardio/Vascular: Yes: HTN, Hyperlipdemia - Alcohol/Substance Use Hx Alcohol Use: No - Smoking History Smoking history: Unknown if ever smoked Have you smoked in the past 12 months: No Home Medications - Allergies Allergies/Adverse Reactions: Allergies Allergy/AdvReac Type Severity Reaction Status Date / Time No Known Allergies Allergy Verified 10/16/18 11:44 - Home Medications Home Medications: Ambulatory Orders Valsartan [Diovan] 80 mg PO DAILY 10/16/18 Verapamil HCl [Verapamil ER] 120 mg PO HS 10/16/18 Family Disease History - Family Disease History Family History: Denies (no known cmp) Review of Systems - Review of Systems Constitutional: denies: Chills, Fever Eyes: denies: Eye Pain HENT: denies: Nasal Congestion Neck: denies: Stiffness Cardiovascular: denies: Palpitations Respiratory: denies: Orthopnea, PND Gastrointestinal: denies: Diarrhea, Rectal Bleeding Genitourinary: denies: Burning, Hematuria Musculoskeletal: denies: Muscle Pain Integumentary: denies: Rash Neurological: denies: Numbness, Seizure, Syncope Endocrine: denies: Excessive Sweating Hematology/Lymphatic: denies: Excessive Bleeding Vital Signs: Vital Signs Temperature 98 F 10/17/18 05:00 Pulse Rate 62 10/17/18 05:00 Respiratory Rate 20 10/17/18 05:00 Blood Pressure 143/99 10/17/18 05:00 O2 Sat by Pulse Oximetry (%) 99 10/17/18 00:15 Constitutional: Yes: Well Nourished, No Distress Eyes: No: Sclera Icterus HENT: No: Nasal Congestion Neck: No: Decreased ROM Respiratory: Yes: CTA Bilaterally. No: Accessory Muscle Use, Rales, Rhonchi, SOB, Wheezes Gastrointestinal: Yes: Normal Bowel Sounds. No: Distention, Hepatomegaly, Palpable Mass, Tenderness Cardiovascular: Yes: Regular Rate and Rhythm JVD: No Carotid Bruit: No PMI: Non-Displaced Heart Sounds: Yes: S1, S2. No: Gallop Murmur: No: Systolic Murmur, Diastolic Murmur Musculoskeletal: Yes: Other (No kyphosis) Extremities: No: Cool, Cyanosis Edema: No Peripheral Pulses: 2+ Left Carotid, 2+ Right Carotid, 2+ Left Doralis Pedis, 2+ Right Dorsalis Pedis Integumentary: No: Jaundice Neurological: Yes: Alert, Oriented (x3) Psychiatric: No: Agitated - Other Data Labs, Other Data: CBC, BMP 10/17/18 06:15 10/17/18 06:15 INR, PTT INR 1.01 (0.83-1.09) 10/17/18 06:15 Troponin, BNP 10/16/18 10/16/18 10/17/18 13:08 16:15 00:30 Troponin I < 0.02 < 0.02 < 0.02 Troponin, BNP 10/16/18 10/16/18 10/17/18 13:08 16:15 00:30 Troponin I < 0.02 < 0.02 < 0.02 Assessment/Plan CTA Neck/Chest/Abdomen - No ao aneurysm/dissection, no PE, + minimal cor calcifications, + L adrenal nodule ECG 10/16 #1: NSR, WNL #2: no signif change CXR: clear lungs/pleura tele: NSR chest pain: -aorta dissection ruled out -very atypical, non-cardiac description (1 fingerbreadth, fleeting duration 1 second, coming and going at rest). identical to his prior BP spike episodes. -sx resolved with bp control, as it has reliably done in the past -serial ECGs non-ischemic, troponin neg x 3 -stress test negative at his cardio <12 mo ago per pt -would not rec repeat stress testing given very low pretest prob of obstructive CAD here dizziness: -also typical of his HTN episodes previously, also resolved with bp control as per the usual pattern he says -no new neuro deficits -per hospitalist HTN: -intially elevated to 170s/100s -significantly improved at present though mildly elevated still -increase home valsartan 80 to 160 qd -incidental adrenal nodule on CT. K is quite normal here. if uncontrolled BP as outpatient then hyperaldosteronism w/u could be considered--o/w would not recommend workup at present as will not change mgmt HPL: -cont home meds from CV standpoint, if bp's bp remains stable/reasonable today, he is ok for discharge later today with f/u with dr noble (cardio) this coming week
[2018-10-17] MEDS ORDERED: VALSARTAN 160 MG TABLET (UD) PO SCH (10:00)
[2018-10-17] MEDS ORDERED: VALSARTAN 80 MG TABLET (UD) PO SCH (10:00)
[2018-10-17] MEDS ORDERED: ENOXAPARIN NA (PORCINE) 40 MG/0.4 ML DISP.SYRIN SQ SCH (10:00)
[2018-10-17] MEDS ORDERED: VERAPAMIL HCL 120 MG E.R. TABLET PO SCH ×2 (10:00→20:00)
--- NOTE | 2018-10-17 11:32 | EKG ---
Test Reason : Blood Pressure : / mmHG Vent. Rate : 071 BPM Atrial Rate : 071 BPM P-R Int : 156 ms QRS Dur : 092 ms QT Int : 390 ms P-R-T Axes : 066 035 045 degrees QTc Int : 423 ms NORMAL SINUS RHYTHM POSSIBLE LEFT ATRIAL ENLARGEMENT BORDERLINE ECG WHEN COMPARED WITH ECG OF 16-OCT-2018 11:23, NO SIGNIFICANT CHANGE WAS FOUND Confirmed by RUPERT GILLESPIE MD ([id number]) on 10/17/2018 11:32:38 AM Referred By: Confirmed By:RUPERT GILLESPIE MD
--- NOTE | 2018-10-17 11:36 | EKG ---
Test Reason : Blood Pressure : / mmHG Vent. Rate : 064 BPM Atrial Rate : 064 BPM P-R Int : 162 ms QRS Dur : 090 ms QT Int : 412 ms P-R-T Axes : 067 031 028 degrees QTc Int : 425 ms NORMAL SINUS RHYTHM NONSPECIFIC ST ABNORMALITY ABNORMAL ECG WHEN COMPARED WITH ECG OF 20-DEC-2017 16:57, NO SIGNIFICANT CHANGE WAS FOUND Confirmed by RUPERT GILLESPIE MD ([id number]) on 10/17/2018 11:36:03 AM Referred By: Confirmed By:RUPERT GILLESPIE MD
[2018-10-17 14:19] LABS: PH,URINE 5.5 (5.0-8.0); URINE APPEARANCE Clear; URINE BILIRUBIN Negative (NEGATIVE); URINE COLOR Yellow; URINE GLUCOSE (UA) Negative (NEGATIVE); URINE KETONE Negative (NEGATIVE); URINE LEUK ESTERASE Negative (NEGATIVE); URINE NITRITE Negative (NEGATIVE); URINE PROTEIN Negative (NEGATIVE); URINE UROBILINOGEN 0.2 mg/dL (0.2-1.0)
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
[2018-10-17] MEDS ORDERED: PT OWN MED DRAWER 7, Y5N ONE (19:30)
[2018-10-17 19:52] VITALS: BP 166/104; PULSE 71; TEMP 98.3
== END 2018-10-17 20:48 | disposition home or self-care (01) ==
LOC: JER 11:10 → JERBED 12:37 → J4W 22:19
PROC: 3E013GC Introduction of Other Therapeutic Substance into Subcutaneous Tissue, Percutaneous Approach (ICD-10-PCS; principal; 2018-10-16)
DX: I16.0 Hypertensive urgency (principal); R07.89 Other chest pain; E27.9 Disorder of adrenal gland, unspecified; E04.1 Nontoxic single thyroid nodule; R42 Dizziness and giddiness; I10 Essential (primary) hypertension; E78.5 Hyperlipidemia, unspecified; Z87.891 Personal history of nicotine dependence
CPT/HCPCS: 36415; 70498-TC; 71045-TC-FY; 71275-TC; 74175-TC; 80053; 81003; 83735; 84100; 84484; 85025; 85610; 85730; 86850; 86900; 86901; 93005; 93010; 93880-TC; 99284-25; G0378

== ENCOUNTER 2019-01-31 11:48 | Emergency (ER) | payer OTHER ==
[2019-01-31 11:56] VITALS: TEMP 98; BMI 30.9
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
[2019-01-31 12:55] LABS: BASO % 2.3 % (0-2.0); EOS % 4.7 % (0-4.5); HEMATOCRIT 48.7 % (35.4-49); HEMOGLOBIN 15.8 GM/dL (11.7-16.9); LYMPH % 27.6 % (8-40); MCH 27.3 pg (25.7-33.7); MCHC 32.5 g/dl (32.0-35.9); MEAN CELL VOLUME 84.1 fl (80-96); MEAN PLT VOLUME 9.9 fl (7.5-11.1); MONO % 7.9 % (3.8-10.2); NEUT % 57.5 % (42.8-82.8); PLATELET COUNT 250 K/MM3 (134-434); RBC 5.79 M/mm3 (4.00-5.60); RDW 13.6 % (11.9-15.9); WHITE BLOOD COUNT 8.7 K/mm3 (4.0-10.0)
[2019-01-31 13:27] LABS: ALBUMIN 3.9 g/dl (3.4-5.0); ALK PHOS 62 U/L (45-117); ANION GAP 6 MMOL/L (8-16); BILIRUBIN,TOTAL 0.7 mg/dL (0.2-1); BLOOD UREA NITROGEN 9.4 mg/dL (7-18); CALCIUM 9.3 mg/dL (8.5-10.1); CHLORIDE 102 mmol/L (98-107); CO2 32 mmol/L (21-32); CREATININE 1.2 mg/dL (0.55-1.3); GLUCOSE,RANDOM 88 mg/dL (74-106); POTASSIUM 3.3 mmol/L (3.5-5.1); SGOT/AST 26 U/L (15-37); SGPT/ALT 41 U/L (13-61); SODIUM 140 mmol/L (136-145); TOT PROT 7.6 g/dl (6.4-8.2)
[2019-01-31] MEDS ORDERED: POTASSIUM CHLORIDE TABS 20 MEQ TABLET.ER (FP) PO ONE ×2 (13:31→13:49)
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
--- NOTE | 2019-01-31 17:33 | EKG ---
Test Reason : Blood Pressure : / mmHG Vent. Rate : 086 BPM Atrial Rate : 086 BPM P-R Int : 132 ms QRS Dur : 086 ms QT Int : 376 ms P-R-T Axes : 068 043 040 degrees QTc Int : 449 ms POOR DATA QUALITY, INTERPRETATION MAY BE ADVERSELY AFFECTED NORMAL SINUS RHYTHM MINIMAL VOLTAGE CRITERIA FOR LVH, MAY BE NORMAL VARIANT BORDERLINE ECG WHEN COMPARED WITH ECG OF 16-OCT-2018 17:57, NO SIGNIFICANT CHANGE WAS FOUND Confirmed by JOSH OCASIO MD ([id number]) on 01/31/2019 5:32:26 PM Referred By: Confirmed By:JOSH OCASIO MD
[2019-01-31 17:40] VITALS: BP 145/90; PULSE 84
== END 2019-01-31 17:40 | disposition home or self-care (01) ==
LOC: JER 11:48
DX: R07.9 Chest pain, unspecified (principal); R07.81 Pleurodynia; Z18.89 Other specified retained foreign body fragments
CPT/HCPCS: 36415; 71275-TC; 80053; 84484; 85025; 85379; 93005; 93010; 99284-25; Q9967

== ENCOUNTER 2019-05-02 23:29 | Emergency (ER) | payer OTHER ==
[2019-05-02 23:53] VITALS: PULSE 87; TEMP 98.3; BMI 30.5
[2019-05-03] MEDS ORDERED: LABETALOL HCL 5 MG/1 ML (100MG/20 ML VIAL) IVPUSH ONE (00:01)
[2019-05-03] MEDS ORDERED: LABETALOL HCL 5 MG/1 ML (200MG/40ML VIAL) IVPB ONE (00:08)
--- NOTE | 2019-05-03 00:23 | PDOC ---
Documentation entered by Sen Dow SCRIBE, acting as scribe for Amrita Zelaya MD. Amrita Zelaya MD: This documentation has been prepared by the Victor M peterson Angel, SCRIBE, under my direction and personally reviewed by me in its entirety. I confirm that the documentation accurately reflects all work, treatment, procedures, and medical decision making performed by me. Attending Attestation - Resident Resident Name: Ze Romo - ED Attending Attestation I have performed the following: I have examined & evaluated the patient, The case was reviewed & discussed with the resident, I agree w/resident's findings & plan, Exceptions are as noted - HPI HPI: 05/03/19 00:11 53-year-old male who is had a long history of poorly controlled high blood pressure since the age of 19 presents with elevated blood pressure. He takes his blood pressure twice daily He denies any shortness of breath or chest pain nausea vomiting or severe headache - Physicial Exam PE: 05/03/19 00:22 Well-nourished well-developed 53-year-old male no acute distress stating that he has had elevated blood pressure since the age of 19 Head normocephalic atraumatic Eyes pupils are equal and reactive to light and accommodation extraocular muscles are intact Neck there is no bruits, no JVD Lungs are clear to auscultation bilaterally CVS is regular rate and rhythm S1-S2, no rubs or gallops no murmurs Protuberant belly but nontender No flank tenderness Skin is warm and dry Extremities no significant pitting edema Neuro alert and oriented x3, ambulatory - Medical Decision Making 05/03/19 00:16 EKG is normal sinus rhythm at 88 bpm, QT C is [address] elevations or depressions 05/03/19 00:25 Patient does not have any chest pain or shortness of breath We will give labetalol to see if we can bring his blood pressure down 05/03/19 01:03 Systolic blood pressure came down to 151 CBC is unremarkable chemistries are unremarkable,negative troponin patient will be discharged home Impression essential hypertension 05/03/19 01:23
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
[2019-05-03 00:35] LABS: EOS % 6.5 % (0-4.5); HEMATOCRIT 46.2 % (35.4-49); HEMOGLOBIN 15.2 GM/dL (11.7-16.9); LYMPH % 28.3 % (8-40); MCH 27.8 pg (25.7-33.7); MCHC 32.9 g/dl (32.0-35.9); MEAN CELL VOLUME 84.6 fl (80-96); MEAN PLT VOLUME 10.6 fl (7.5-11.1); MONO % 8.2 % (3.8-10.2); PLATELET COUNT 244 K/MM3 (134-434); RBC 5.46 M/mm3 (4.00-5.60); RDW 13.6 % (11.9-15.9); WHITE BLOOD COUNT 9.4 K/mm3 (4.0-10.0)
[2019-05-03 01:19] LABS: ALBUMIN 3.8 g/dl (3.4-5.0); ALK PHOS 71 U/L (45-117); ANION GAP 9 MMOL/L (8-16); BILIRUBIN,TOTAL 0.5 mg/dL (0.2-1); BLOOD UREA NITROGEN 14.7 mg/dL (7-18); CALCIUM 8.9 mg/dL (8.5-10.1); CHLORIDE 102 mmol/L (98-107); CO2 27 mmol/L (21-32); CREATININE 1.1 mg/dL (0.55-1.3); GLUCOSE,RANDOM 127 mg/dL (74-106); POTASSIUM 3.4 mmol/L (3.5-5.1); SGOT/AST 33 U/L (15-37); SGPT/ALT 47 U/L (13-61); SODIUM 138 mmol/L (136-145); TOT PROT 7.5 g/dl (6.4-8.2)
[2019-05-03 01:22] VITALS: BP 151/84
--- NOTE | 2019-05-03 10:33 | EKG ---
Test Reason : Blood Pressure : / mmHG Vent. Rate : 088 BPM Atrial Rate : 088 BPM P-R Int : 166 ms QRS Dur : 098 ms QT Int : 370 ms P-R-T Axes : 071 043 034 degrees QTc Int : 447 ms NORMAL SINUS RHYTHM NORMAL ECG WHEN COMPARED WITH ECG OF 31-JAN-2019 12:01, NO SIGNIFICANT CHANGE WAS FOUND Confirmed by Kar Isaacs MD ([id number]) on 05/03/2019 10:33:03 AM Referred By: Confirmed By:Kar Isaacs MD
== END 2019-05-03 01:29 | disposition home or self-care (01) ==
LOC: JER 23:29
PROC: 3E033GC Introduction of Other Therapeutic Substance into Peripheral Vein, Percutaneous Approach (ICD-10-PCS; principal; 2019-05-02)
DX: I10 Essential (primary) hypertension (principal); E78.5 Hyperlipidemia, unspecified; Z87.828 Personal history of other (healed) physical injury and trauma
CPT/HCPCS: 36415; 80053; 82550; 82553; 84484; 85025; 93005; 93010; 99284-25

== ENCOUNTER 2021-05-29 04:37 | Day surgery (SDC) | payer OTHER ==
[2021-05-27 13:57] VITALS: BMI 29.8
[2021-05-29] MEDS ORDERED: PROPOFOL 20 ML ONE ×4 (14:12→14:49)
[2021-05-29] MEDS ORDERED: MIDAZOLAM HCL 2 MG/2 ML SINGLE DOSE VIAL ONE (14:13)
[2021-05-29] MEDS ORDERED: ceFAZolin SODIUM 1 GM VIAL IVPB ONE (14:20)
[2021-05-29] MEDS ORDERED: LIDOCAINE HCL 2% JELLY 10 ML CARTRIDGE ONE (14:29)
[2021-05-29] MEDS ORDERED: LIDOCAINE HCL 2% JELLY 10 ML CARTRIDGE TP ONE (14:40)
[2021-05-29] MEDS ORDERED: LACTATED RINGERS SOLUTION 1,000 ML IV SCH (15:30)
[2021-05-29] MEDS ORDERED: oxyCODONE HCL 5 MG TABLET PO ONE ×3 (16:33→16:37)
[2021-05-29 17:23] VITALS: BP 148/83; PULSE 79; TEMP 97.2
== END 2021-05-29 18:10 | disposition home or self-care (01) ==
LOC: JASU-SURG 04:37
PROVIDERS: ATTEND Urology
PROC: 0T9680Z Drainage of Right Ureter with Drainage Device, Via Natural or Artificial Opening Endoscopic (ICD-10-PCS; principal; 2021-05-29 14:00)
PROC: BT1DYZZ Fluoroscopy of Right Kidney, Ureter and Bladder using Other Contrast (ICD-10-PCS; 2021-05-29 14:00)
DX: C67.5 Malignant neoplasm of bladder neck (principal)
CPT/HCPCS: 88108; 88307-TC; 94760

== ENCOUNTER 2021-07-23 16:55 | Emergency (ER) | payer OTHER ==
[2021-07-23 18:17] VITALS: TEMP 98.5; BMI 32.1
[2021-07-23] MEDS ORDERED: ACETAMINOPHEN 1000 MG/100 ML BAG IVPB ONE (18:45)
[2021-07-23] MEDS ORDERED: ACETAMINOPHEN INJECTION 100 ML IVPB ONE (18:49)
[2021-07-23 19:21] LABS: EOS % 5.6 % (0-4.5); HEMATOCRIT 41.5 % (35.4-49); HEMOGLOBIN 13.5 GM/dL (11.7-16.9); LYMPH % 21.1 % (8-40); MCHC 32.5 g/dl (32.0-35.9); MEAN CELL VOLUME 83.1 fl (80-96); MEAN PLT VOLUME 9.7 fl (7.5-11.1); MONO % 8.4 % (3.8-10.2); NEUT % 63.9 % (42.8-82.8); PLATELET COUNT 252 10^3/uL (134-434); RBC 4.99 M/mm3 (4.00-5.60); RDW 13.2 % (11.9-15.9); WHITE BLOOD COUNT 8.6 K/mm3 (4.0-10.0)
[2021-07-23 19:28] LABS: INR 1.13 (0.83-1.09)
[2021-07-23 19:58] LABS: ALBUMIN 3.7 g/dl (3.4-5.0); BLOOD UREA NITROGEN 15.7 mg/dL (7-18)
[2021-07-23 20:01] LABS: CREATININE 1.2 mg/dL (0.55-1.3)
[2021-07-23 20:03] LABS: BILIRUBIN,TOTAL 0.7 mg/dL (0.2-1)
[2021-07-23] MEDS ORDERED: POTASSIUM CHLORIDE TABS 20 MEQ TABLET.ER (FP) PO ONE ×2 (20:40→20:42)
[2021-07-23 23:12] VITALS: BP 156/94; PULSE 63
== END 2021-07-23 23:29 | disposition home or self-care (01) ==
LOC: JER 16:55
PROC: 3E0333Z Introduction of Anti-inflammatory into Peripheral Vein, Percutaneous Approach (ICD-10-PCS; principal; 2021-07-23)
DX: R07.9 Chest pain, unspecified (principal)
CPT/HCPCS: 36415; 71046-TC-FY; 80053; 84443; 84484; 85025; 85610; 85730; 93005; 93010; 99285-25

== ENCOUNTER 2021-08-09 04:24 | Day surgery (SDC) | payer OTHER ==
[2021-08-06 17:47] VITALS: BMI 31.1
[2021-08-09] MEDS ORDERED: PROPOFOL 20 ML ONE ×2 (08:19→08:20)
[2021-08-09] MEDS ORDERED: SUCCINYLCHOLINE CHLORIDE 200 MG/10 ML SYRINGE ONE (08:19)
[2021-08-09] MEDS ORDERED: MIDAZOLAM HCL 2 MG/2 ML SINGLE DOSE VIAL ONE (08:19)
[2021-08-09] MEDS ORDERED: PROMETHAZINE HCL 25 MG/1 ML VIAL IVPUSH PRN (08:26)
[2021-08-09] MEDS ORDERED: ONDANSETRON 4 MG/2 ML VIAL IVPUSH PRN (08:26)
[2021-08-09] MEDS ORDERED: GEMCITABINE HCL 1 GM/50 ML DISP.SYRIN (OR USE ONLY) IS SCH (08:30)
[2021-08-09] MEDS ORDERED: LACTATED RINGERS SOLUTION 1,000 ML IV SCH (08:30)
[2021-08-09] MEDS ORDERED: ceFAZolin SODIUM 1 GM VIAL IVPB ONE (08:40)
[2021-08-09] MEDS ORDERED: LIDOCAINE HCL 2% JELLY 10 ML CARTRIDGE ONE (08:41)
[2021-08-09] MEDS ORDERED: LIDOCAINE HCL 2% JELLY 10 ML CARTRIDGE TP ONE (09:05)
[2021-08-09] MEDS ORDERED: GEMCITABINE HCL 1 GM/50 ML DISP.SYRIN (OR USE ONLY) IS ONE (10:15)
[2021-08-09] MEDS ORDERED: ACETAMINOPHEN INJECTION 100 ML IVPB ONE (10:44)
[2021-08-09] MEDS ORDERED: ACETAMINOPHEN 1000 MG/100 ML BAG IVPB ONE (11:07)
[2021-08-09 12:35] VITALS: BP 138/80; PULSE 66; TEMP 97.6
== END 2021-08-09 12:20 | disposition home or self-care (01) ==
LOC: JASU-SURG 04:24
PROVIDERS: ATTEND Urology
PROC: 0T5B8ZZ Destruction of Bladder, Via Natural or Artificial Opening Endoscopic (ICD-10-PCS; principal; 2021-08-09 09:00)
PROC: 0T9680Z Drainage of Right Ureter with Drainage Device, Via Natural or Artificial Opening Endoscopic (ICD-10-PCS; 2021-08-09 09:00)
DX: C67.9 Malignant neoplasm of bladder, unspecified (principal)
CPT/HCPCS: 76000-TC-FY; 88305-TC; 94760

== ENCOUNTER 2022-04-25 19:28 | Observation (INO) | payer OTHER ==
[2022-04-25 20:42] LABS: BASO % 0.8 % (0-2.0); EOS % 6.4 % (0-4.5); HEMATOCRIT 43.2 % (35.4-49); HEMOGLOBIN 14.4 GM/dL (11.7-16.9); LYMPH % 27.9 % (8-40); MCH 27.9 pg (25.7-33.7); MCHC 33.2 g/dl (32.0-35.9); MEAN PLT VOLUME 11.3 fl (7.5-11.1); MONO % 8.1 % (3.8-10.2); NEUT % 56.8 % (42.8-82.8); PLATELET COUNT 213 10^3/uL (134-434); RBC 5.15 M/mm3 (4.00-5.60); RDW 14.2 % (11.9-15.9); WHITE BLOOD COUNT 9.6 K/mm3 (4.0-10.0)
[2022-04-25 21:00] LABS: INR 1.06 (0.83-1.09); PROTHROMBIN TIME (PATIENT) 12.3 SEC (9.7-13.0)
[2022-04-25 21:03] LABS: CALCIUM 8.7 mg/dL (8.5-10.1)
[2022-04-25 21:04] LABS: ALBUMIN 3.5 g/dl (3.4-5.0); BLOOD UREA NITROGEN 13.5 mg/dL (7-18)
[2022-04-25 21:07] LABS: CREATININE 1.2 mg/dL (0.55-1.3)
[2022-04-25 21:08] LABS: BILIRUBIN,TOTAL 0.7 mg/dL (0.2-1); TOT PROT 7.1 g/dl (6.4-8.2)
[2022-04-25 21:38] LABS: MAGNESIUM 2.3 mg/dL (1.8-2.4)
[2022-04-25 23:00] LABS: BLOOD UREA NITROGEN 12.7 mg/dL (7-18); CALCIUM 8.4 mg/dL (8.5-10.1)
[2022-04-25 23:03] LABS: CREATININE 1.1 mg/dL (0.55-1.3)
[2022-04-26] MEDS ORDERED: NIFEdipine E.R. 30 MG TABLET PO ONE ×2 (00:37→04:13)
[2022-04-26] MEDS ORDERED: metoPROLOL SUCCINATE 25 MG TAB.SR.24H (FP) PO ONE ×2 (00:37→04:14)
[2022-04-26 04:31] LABS: HEMATOCRIT 42.4 % (35.4-49); MCH 27.4 pg (25.7-33.7); MEAN PLT VOLUME 10.1 fl (7.5-11.1); PLATELET COUNT 210 10^3/uL (134-434); RBC 5.11 M/mm3 (4.00-5.60); RDW 13.9 % (11.9-15.9); WHITE BLOOD COUNT 8.5 K/mm3 (4.0-10.0)
[2022-04-26 04:33] LABS: PH,URINE 6.5 (5.0-8.0); URINE APPEARANCE CLEAR; URINE BILIRUBIN NEGATIVE (NEGATIVE); URINE COLOR YELLOW; URINE GLUCOSE (UA) NEGATIVE (NEGATIVE); URINE KETONE NEGATIVE (NEGATIVE); URINE LEUK ESTERASE NEGATIVE (NEGATIVE); URINE NITRITE NEGATIVE (NEGATIVE); URINE PROTEIN NEGATIVE (NEGATIVE); URINE UROBILINOGEN 0.2 mg/dL (0.2-1.0)
[2022-04-26 04:54] LABS: CALCIUM 8.6 mg/dL (8.5-10.1)
[2022-04-26 04:55] LABS: ALBUMIN 3.5 g/dl (3.4-5.0); BLOOD UREA NITROGEN 12.6 mg/dL (7-18); MAGNESIUM 2.4 mg/dL (1.8-2.4)
[2022-04-26 04:58] LABS: PHOSPHOROUS 3.9 mg/dL (2.5-4.9)
[2022-04-26 04:59] LABS: TOT PROT 6.7 g/dl (6.4-8.2)
[2022-04-26 05:00] LABS: BILIRUBIN,TOTAL 0.6 mg/dL (0.2-1)
[2022-04-26 05:19] VITALS: BMI 31.5
[2022-04-26] MEDS: TAMSULOSIN HCL 0.4 MG CAP PO SCH (08:49)
[2022-04-26] MEDS: VALSARTAN 160 MG TABLET PO SCH (09:40)
[2022-04-26] MEDS: ASPIRIN COATED 81 MG TABLET.EC PO SCH (09:40)
[2022-04-26] MEDS: ENOXAPARIN NA (PORCINE) 40 MG/0.4 ML DISP.SYRIN SQ SCH (09:40)
[2022-04-26] MEDS: HYDROCHLOROTHIAZIDE 12.5 MG CAPSULE (FP) PO SCH (09:40)
[2022-04-26 15:58] LABS: COCAINE, UR NEGATIVE (NEGATIVE); METHADONE, UR NEGATIVE (NEGATIVE); OPIATES, URI NEGATIVE (NEGATIVE); PHENCYCLIDINE,URINE NEGATIVE (NEGATIVE); URINE AMPHETAMINES NEGATIVE (NEGATIVE); URINE BARBITURATES NEGATIVE (NEGATIVE); URINE BENZODIAZEPINES NEGATIVE (NEGATIVE)
[2022-04-26] MEDS ORDERED: ACETAMINOPHEN 1000 MG/100 ML BAG IVPB PRN (18:22)
[2022-04-26] MEDS: NIFEdipine E.R. 30 MG TABLET PO SCH (21:18)
[2022-04-27] MEDS: TAMSULOSIN HCL 0.4 MG CAP PO SCH (08:20)
[2022-04-27] MEDS: ENOXAPARIN NA (PORCINE) 40 MG/0.4 ML DISP.SYRIN SQ SCH (09:51)
[2022-04-27] MEDS: ASPIRIN COATED 81 MG TABLET.EC PO SCH (09:52)
[2022-04-27] MEDS: HYDROCHLOROTHIAZIDE 12.5 MG CAPSULE (FP) PO SCH (09:52)
[2022-04-27] MEDS: VALSARTAN 160 MG TABLET PO SCH (09:52)
[2022-04-27 10:01] LABS: BASO % 0.9 % (0-2.0); EOS % 7.5 % (0-4.5); HEMATOCRIT 44.8 % (35.4-49); HEMOGLOBIN 14.8 GM/dL (11.7-16.9); LYMPH % 27.9 % (8-40); MCH 27.6 pg (25.7-33.7); MCHC 33.1 g/dl (32.0-35.9); MEAN CELL VOLUME 83.4 fl (80-96); MEAN PLT VOLUME 11.2 fl (7.5-11.1); MONO % 6.8 % (3.8-10.2); NEUT % 56.9 % (42.8-82.8); PLATELET COUNT 205 10^3/uL (134-434); RBC 5.37 M/mm3 (4.00-5.60); RDW 13.8 % (11.9-15.9); WHITE BLOOD COUNT 7.8 K/mm3 (4.0-10.0)
[2022-04-27 10:21] LABS: ALBUMIN 3.6 g/dl (3.4-5.0); BLOOD UREA NITROGEN 12.5 mg/dL (7-18)
[2022-04-27 10:25] LABS: BILIRUBIN,TOTAL 1.1 mg/dL (0.2-1); TOT PROT 6.9 g/dl (6.4-8.2)
[2022-04-27] MEDS: NIFEdipine E.R. 30 MG TABLET PO SCH (21:05)
[2022-04-27] MEDS ORDERED: ACETAMINOPHEN 1000 MG/100 ML BAG IVPB ONE (21:12)
[2022-04-28] MEDS ORDERED: REGADENOSON 0.4 MG/5 ML PRE-FILLED SYRINGE IVPUSH ONE ×2 (09:10→09:15)
[2022-04-28] MEDS: TAMSULOSIN HCL 0.4 MG CAP PO SCH (10:03)
[2022-04-28] MEDS: HYDROCHLOROTHIAZIDE 12.5 MG CAPSULE (FP) PO SCH (10:03)
[2022-04-28] MEDS: ASPIRIN COATED 81 MG TABLET.EC PO SCH (10:03)
[2022-04-28] MEDS: VALSARTAN 160 MG TABLET PO SCH (10:04)
[2022-04-28] MEDS: ENOXAPARIN NA (PORCINE) 40 MG/0.4 ML DISP.SYRIN SQ SCH (10:04)
[2022-04-28] MEDS ORDERED: NIFEdipine E.R. 30 MG TABLET PO SCH (15:24)
[2022-04-28] MEDS ORDERED: NIFEdipine E.R 60 MG TABLET PO ONE (15:25)
[2022-04-28] MEDS ORDERED: ATORVASTATIN CA 80 MG TABLET (FP) PO ONE (15:32)
[2022-04-28] MEDS: NIFEdipine E.R. 30 MG TABLET PO ONE ×3 (16:49→17:21)
[2022-04-28] MEDS ORDERED: HYDROCHLOROTHIAZIDE 12.5 MG CAPSULE (FP) PO ONE (17:15)
[2022-04-28] MEDS ORDERED: HYDROCHLOROTHIAZIDE 25 MG TABLET (FP) PO SCH (18:05)
[2022-04-28 23:08] VITALS: BP 142/89; PULSE 72; RESP 19; TEMP 98.7
[2022-04-29] MEDS ORDERED: NIFEdipine E.R. 90 MG TABLET PO SCH (10:00)
[2022-04-29] MEDS ORDERED: NIFEdipine E.R 60 MG TABLET PO SCH (10:00)
== END 2022-04-28 23:08 | disposition home or self-care (01) ==
LOC: JER 19:28 → JERBED 22:51 → J4S 04-26 04:37
PROVIDERS: ADMIT Internal Medicine; ATTEND Internal Medicine
PROC: 3E023GC Introduction of Other Therapeutic Substance into Muscle, Percutaneous Approach (ICD-10-PCS; principal; 2022-04-25)
PROC: 3E033NZ Introduction of Analgesics, Hypnotics, Sedatives into Peripheral Vein, Percutaneous Approach (ICD-10-PCS; 2022-04-25)
PROC: 3E033GC Introduction of Other Therapeutic Substance into Peripheral Vein, Percutaneous Approach (ICD-10-PCS; 2022-04-25)
DX: R07.9 Chest pain, unspecified (principal); E78.5 Hyperlipidemia, unspecified; I10 Essential (primary) hypertension; Z85.51 Personal history of malignant neoplasm of bladder; R07.0 Pain in throat; R42 Dizziness and giddiness; T14.8XXA Other injury of unspecified body region, initial encounter; Z87.891 Personal history of nicotine dependence; Y99.9 Unspecified external cause status
CPT/HCPCS: 36415; 71046-TC-FY; 78452-TC; 80048; 80053; 80307; 81003; 83036; 83735; 84100; 84436; 84443; 84484; 85025; 85027; 85610; 93005; 93010; 93017; 93306-TC; 99285-25; A9502; C9803-CS; G0378; J2785; U0003; U0005

== ENCOUNTER 2023-07-17 10:59 | Emergency (ER) | payer OTHER ==
[2023-07-17 11:16] VITALS: BP 168/96; RESP 18; TEMP 98; BMI 29.8
[2023-07-17 11:53] VITALS: PULSE 95
[2023-07-17] MEDS ORDERED: ALBUTEROL SO4 2.5/IPRATROPIUM 0.5 INH SOL 3 ML VIAL.NEB. NEB ONE (12:06)
[2023-07-17] MEDS: ALBUTEROL SO4 2.5/IPRATROPIUM 0.5 INH SOL 3 ML VIAL.NEB. NEB ONE (12:26)
[2023-07-17 12:39] LABS: BASO % 1.2 % (0-2.0); EOS % 10.4 % (0-4.5); HEMATOCRIT 45.4 % (35.4-49); HEMOGLOBIN 14.7 GM/dL (11.7-16.9); LYMPH % 22.7 % (8-40); MCH 27.3 pg (25.7-33.7); MCHC 32.5 g/dl (32.0-35.9); MEAN PLT VOLUME 9.8 fl (7.5-11.1); NEUT % 55.7 % (42.8-82.8); PLATELET COUNT 274 10^3/uL (134-434); RDW 13.8 % (11.9-15.9); WHITE BLOOD COUNT 8.9 K/mm3 (4.0-10.0)
[2023-07-17 12:50] LABS: POTASSIUM 3.6 mmol/L (3.5-5.1)
[2023-07-17 12:52] LABS: ALBUMIN 3.9 g/dl (3.4-5.0); CALCIUM 9.4 mg/dL (8.5-10.1)
[2023-07-17 12:53] LABS: BLOOD UREA NITROGEN 10.8 mg/dL (7-18); MAGNESIUM 2.4 mg/dL (1.8-2.4)
[2023-07-17 12:57] LABS: BILIRUBIN,TOTAL 0.8 mg/dL (0.2-1); TOT PROT 7.9 g/dl (6.4-8.2)
[2023-07-17 13:16] LABS: INR 1.09 (0.83-1.09); PROTHROMBIN TIME (PATIENT) 12.3 SEC (9.7-13.0)
[2023-07-17 13:19] LABS: ACTIVATED PTT 32.5 SECONDS (25.2-36.5)
== END 2023-07-17 15:17 | disposition home or self-care (01) ==
LOC: JER 10:59
PROC: 3E0F7GC Introduction of Other Therapeutic Substance into Respiratory Tract, Via Natural or Artificial Opening (ICD-10-PCS; principal; 2023-07-17)
DX: R06.02 Shortness of breath (principal); R06.2 Wheezing; R07.89 Other chest pain
CPT/HCPCS: 36415; 71046-TC-FY; 80053; 83735; 84484; 85025; 85610; 85730; 93005; 93010; 99285-25